=== PATIENT | male | born 1945 | race Caucasian/White ===

== ENCOUNTER 2021-01-09 23:37 | Emergency (ER) | payer MEDICARE, OTHER, SELFPAY ==
--- NOTE | ~2021-01-09 | XR_ITS ---
XR wrist LT min 3V DATE: 01/09/2021 23:55 INDICATION: Fall. Left wrist pain and swelling TECHNIQUE: 4 views COMPARISON: None FINDINGS: There is dorsal soft tissue swelling of the wrist and evidence of dorsally displaced fractu re of the triquetrum bone. Mild chondrocalcinosis of the triangular cartilage. There is mild to moderate osteoarthritis at the first carpometacarpal joint. 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 Sparks was notified in person in the emergency room by Dr. Fierro of the triquetrum fracture on 01/2021 at 0900 hours Reviewed, dictated and finalized at location A. 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 Sparks was notified in person in the emergency ro om by Dr. Fierro of the triquetrum fracture on 01/2021 at 0900 hours
[2021-01-09 23:38] VITALS: BP 148/58; PULSE 72; RESP 16; TEMP 36.9; O2SAT 97
[2021-01-10 01:31] VITALS: BP 113/99; PULSE 70; RESP 14; O2SAT 95
--- NOTE | 2021-01-10 01:58 | ED.GENADULT ---
HPI - General Adult General Chief complaint: Extremity Injury, Upper Stated complaint: L wrist injury Time Seen by Provider: 01/10/21 01:53 History of Present Illness HPI narrative: Patient is a 75-year-old gentleman who presents the emergency department with chief complaint of left wrist pain. The patient reports that he was in the garage getting something he could move the lawnmower and backed up and tripped over the lawnmower and fell on his left wrist. Patient states that his left wrist hurts in the joints and hurts worse with movement and improved with rest. Patient denies any other injuries denies loss of consciousness denies head injury or neck pain Related Data Allergies Allergy/AdvReac Type Severity Reaction Status Date / Time cortisone Allergy Unknown Unknown Verified 01/10/21 01:31 Sulfa (Sulfonamide Allergy Unknown Unknown Verified 01/10/21 01:31 Antibiotics) SULFA Allergy Intermediate Unknown Uncoded 01/10/21 01:31 NKFA Allergy Unknown Unknown Uncoded 01/10/21 01:31 Review of Systems Review of Systems: Narrative: A 10 system review of systems was completed on the patient and is negative except for what is stated in the HPI. Nursing and ancillary documentation was reviewed. [facility] Family History Family History Father Family history of genetic disorder Grandparent Family history of genetic disorder Social History Social History Smoking status: Former smoker Second hand tobacco smoke exposure: No Smoking end date: 07/08/16 Alcohol intake: never Gender identity (if verbalized by the patient): Male Exam Narrative: Exam Narrative: GENERAL: Well-appearing, well-nourished, and in no acute distress. HEAD: Normocephalic, atraumatic. EYES: PERRLA and EOMI. ENT: Nares clear, no rhinorrhea or epistaxis. Mucous membranes moist. NECK: Supple. CHEST: Clear to auscultation. No respiratory distress. HEART: Regular rate and rhythm. No murmur heard. Normal peripheral pulses. ABDOMEN: Soft, nontender, nondistended, normal active bowel sounds. EXTREMITIES: Normal range of motion. No edema. There is tenderness to palpation of the left wrist SKIN: Warm, dry, no rash. NEURO: No focal deficits. Alert and oriented x3. PSYCH: Normal mood and affect. Course Course Emergency Course: Clinical x-ray of the left wrist showed evidence of a carpal bone avulsion fracture Vital Signs Vital signs: Vital Signs Temperature 36.9 C 01/09/21 23:38 Pulse Rate 72 01/09/21 23:38 Respiratory Rate 16 01/09/21 23:38 Blood Pressure 148/58 H 01/09/21 23:38 Pulse Oximetry 97 01/09/21 23:38 Temperature 36.9 C 01/09/21 23:38 Pulse Rate 70 01/10/21 01:31 Respiratory Rate 14 01/10/21 01:31 Blood Pressure 113/99 H 01/10/21 01:31 Pulse Oximetry 95 01/10/21 01:31 Medical Decision Making Vital Signs Vital Signs: Vital Signs Temperature 36.9 C 01/09/21 23:38 Pulse Rate 72 01/09/21 23:38 Respiratory Rate 16 01/09/21 23:38 Blood Pressure 148/58 H 01/09/21 23:38 Pulse Oximetry 97 01/09/21 23:38 Temperature 36.9 C 01/09/21 23:38 Pulse Rate 70 01/10/21 01:31 Respiratory Rate 14 01/10/21 01:31 Blood Pressure 113/99 H 01/10/21 01:31 Pulse Oximetry 95 01/10/21 01:31 Discharge Plan Discharge Clinical Impression: Closed fracture of left wrist Qualifiers: Encounter type: initial encounter Qualified Code(s): S62.102A - Fracture of unspecified carpal bone, left wrist, initial encounter for closed fracture Patient Disposition: Home, Self-Care Condition: Stable Instructions: Antibiotic Form, Wrist Fracture in Adults (ED), Splint Care (ED) Prescriptions: New hydrocodone-acetaminophen 5-325 mg tablet 1 tablet PO Q6H PRN (Reason: pain) 3 Days Qty: 12 RF: 0 Follow-up/Referrals: Gerald Macias MD [Physician] - 1 Week UNKNOW
[2021-01-10] MEDS: HYDROcodone/acetaminophen (*CRX) 5-325 MG TABLET 1 TAB PO (02:28)
[2021-01-10 02:32] VITALS: BP 141/88; PULSE 88; RESP 17; O2SAT 97
== END 2021-01-10 02:33 | disposition home or self-care (01) ==
LOC: ANHED 01-10 02:09
PROVIDERS: Emergency Provider Emergency Medicine
DX: S62.102A Fracture of unspecified carpal bone, left wrist, initial encounter for closed fracture (principal); Z87.891 Personal history of nicotine dependence; W01.0XXA Fall on same level from slipping, tripping and stumbling without subsequent striking against object, initial encounter
CPT/HCPCS: 29125; 73110; 99284; A9270

== ENCOUNTER 2021-09-16 10:29 | Inpatient (IN) | payer MEDICARE, OTHER, SELFPAY ==
[2021-09-16] VITALS (28 sets, daily range): BP systolic 69–130; BP diastolic 46–66; PULSE 82–93; RESP 11–21; TEMP 36.7–37.2; O2SAT 79–100; BMI 32.2
--- NOTE | ~2021-09-16 | US_ITS ---
EXAMINATION: US biopsy lymph node DATE: 09/18/2021 14:56 INDICATION: Pelvic lymphadenopathy. TECHNIQUE: The procedure including the risks, benefits, and alternatives was discussed with the patie nt. Risks discussed included bleeding and infection. The patient understood the risks and agreed to p roceed. The skin overlying the right inguinal region was prepped and draped in usual sterile fashion. Anesthetic was administered with 1% lidocaine subcutaneously. An 18 gauge core biopsy needle was t hen used to obtain 6 core biopsy specimens under continuous sonographic guidance. The entry site was cleaned and dressed. There were no immediate complications. FINDINGS: Ultrasound images demonstrate the needle in a 4.5 x 1.4 cm right inguinal lymph node. IMPRESSION: 1. Ultrasound-guided core needle biopsy of a right inguinal lymph node. Reviewed, dictated and finalized at location A.
--- NOTE | 2021-09-16 10:59 | ECG_ITS ---
Measurements Intervals [place] Rate: 83 P: 232 VT: 150 QRS: 44 QRSD: 88 T: 12 QT: 350 QTc: 413 Interpretive Statements SINUS RHYTHM NONSPECIFIC T-WAVE ABNORMALITY NO PREVIOUS ECG AVAILABLE FOR COMPARISON Electronically Signed On 09-16-2021 13:23:12 [employer] by Jacklyn Cano M.D.
[2021-09-16 11:17] LABS: Basophils Absolute Auto 0.1 K/mm3 (0.0-0.1); Basophils Percent Auto 0.5 % (0.2-1.2); Eosinophils Absolute Auto 0.1 K/mm3 (0-0.3); Eosinophils Percent Auto 0.5 % (0-4.4); Hematocrit 32.3 % (42.0-52.0); Immature Granulocyte Percent A 0.9 % (0-0.5); Lymphocytes Percent Auto 31.5 % (18.3-44.2); Mean Corpuscular Hemoglobin 27.5 pg (26-34); Mean Corpuscular Volume 88.7 fl (80-100); Mean Platelet Volume 10.9 fl (7.4-10.4); Monocytes Absolute Auto 1.1 K/mm3 (0.1-0.6); Monocytes Percent Auto 9.5 % (2.6-8.5); Neutrophils Absolute Auto 6.5 K/mm3 (1.3-6.7); Neutrophils Percent Auto 57.1 % (45.5-73.1); Platelet Count Result 188 k/mm3 (150-375); Red Blood Count 3.64 M/mm3 (4.6-6.20); Red Cell Distribution Width 18.3 % (11.5-14.5); White Blood Count 11.4 K/mm3 (4.5-10.0)
[2021-09-16 11:21] LABS: Add Urine Microscopic? YES; Appearance Urine Clear (Clear); Bilirubin Urine Negative (Negative); Blood Urine Negative (Negative); Color Urine Yellow (Yellow); Glucose Urine UA Negative (Negative); Ketones Urine Trace mg/dL (Negative); Leukocyte Esterase Ur Trace LEU/UL (Negative); Mucus Urine Rare /lpf; Nitrate Urine Negative (Negative); Protein Urine Negative (Negative); RBC Urine 0-2 /hpf (0-2); Specific Grav Ur 1.021 (1.001-1.035); Squamous Epithelial Cell Urine Rare /hpf (Few); Urobilinogen Urine Negative mg/dL (<2.0)
[2021-09-16] MEDS: SODIUM CHLORIDE 0.9% IV 1,000 ML 999 ML IV CONT (11:25)
[2021-09-16] MEDS: PANTOPRAZOLE SODIUM IV 40 MG VIAL 80 MG IV PUSH (11:26)
[2021-09-16 11:27] LABS: Alanine Aminotransferase 22 U/L (4-50); Albumin Level 3.7 g/dL (3.5-5.1); Alkaline Phosphatase 62 U/L (38-126); Anion Gap 7 mmol/L (8-16); Aspartate Amino Transferase 57 U/L (17-59); Bilirubin,Total 0.3 mg/dL (0.2-1.3); Blood Urea Nitrogen 68 mg/dL (9-20); Calcium 8.7 mg/dL (8.4-10.2); Carbon Dioxide 22 mmol/L (22-30); Chloride 109 mmol/L (98-107); Estimated CRCL calculation 88 ml/min; Estimated Glomerular Filt Rate > 60; Glucose 133 mg/dL (65-110); Potassium 5.3 mmol/L (3.4-5.0); Sodium 138 mmol/L (137-145)
[2021-09-16 11:29] LABS: INR 1.2; Partial Thromboplastin Time 28.2 SECONDS (22.3-36.8); Prothrombin Time 14.6 Seconds (11.1-14.7)
--- NOTE | 2021-09-16 12:17 | ED.GIBLEED ---
HPI - GI Bleed General Chief complaint: GI Bleed Stated complaint: near syncopal Time Seen by Provider: 09/16/21 10:31 History of Present Illness HPI Narrative: Patient is a 76-year-old male who presents to the ER with near syncope. Reports he was trying to walk when he got really lightheaded like he might fall. Per tensive for EMS in the 80s. Reports symptoms occurred after having a black pasty bowel movement. He is not on any blood thinners. Denies acid reflux. Reports he has had some intermittent black stools over the last week. No chest pain or chest pressure. No gross blood in stool. Related Data Home Medications Medication Instructions Recorded Confirmed finasteride 5 mg tablet 5 mg PO DAILY 01/18/21 09/05/21 tamsulosin 0.4 mg capsule 0.4 mg PO DAILY 01/18/21 09/05/21 naproxen sodium 220 mg capsule 220 mg PO BID PRN 02/14/21 09/05/21 Allergies Allergy/AdvReac Type Severity Reaction Status Date / Time cortisone Allergy Unknown Unknown Verified 09/05/21 14:57 Sulfa (Sulfonamide Allergy Unknown Unknown Verified 09/05/21 14:57 Antibiotics) SULFA Allergy Intermediate Unknown Uncoded 09/05/21 14:57 NKFA Allergy Unknown Unknown Uncoded 09/05/21 14:57 Review of Systems Review of Systems: All systems reviewed & are unremarkable except as noted in HPI and below Constitutional: Constitutional: Denies chills, Denies fever(s) and Reports weakness ENT: Denies nasal congestion and Denies sore throat Cardiovascular: Cardiovascular: Denies chest pain and Denies rapid heart rate Respiratory: Respiratory: Denies cough, Denies dyspnea and Denies wheezing Gastrointestinal: Gastrointestinal: Denies abdominal pain, Denies heartburn, Denies nausea and Denies vomiting Comments: Dark black stools Neurologic: Reports dizziness and Reports syncope (Near) [facility] Past Medical History Medical History BPH NOS w/o ur obs/LUTS Displaced fracture of carpal bone of left wrist dorsal avulsion fracture of the triquetrum Dyslipidemia Incisional hernia without mention of obstruction or gangrene Nondisplaced fracture of left radial styloid process, initial encounter for closed fracture Peripheral neuropathy Surgical History Surgical History History of appendectomy 2000 History of colostomy reversal 2000 History of laparotomy x2 - 2002 and 2003 due to infected sutures History of partial surgical removal of colon 1999 - due to rupture History of repair of rotator cuff 1995 - Right 2017 - Left History of tonsillectomy 195 Family History Family History Father Family history of genetic disorder Grandparent Family history of genetic disorder Social History Social History Second hand tobacco smoke exposure: No Smoking end date: 12/06/16 Alcohol intake: never Gender identity (if verbalized by the patient): Male Exam Narrative: GENERAL: Well-appearing, well-nourished, and in no acute distress. HEAD: Normocephalic, atraumatic. EYES: PERRL and EOMI. ENT: Mucous membranes moist. CHEST: Clear to auscultation. No respiratory distress. HEART: Regular rate and rhythm. Normal peripheral pulses. ABDOMEN: Soft, nontender, nondistended, black stool on MAZIN without gross blood. Stool is Hemoccult positive. EXTREMITIES: Normal range of motion. No edema. SKIN: Warm, dry, no rash. NEURO: Alert and oriented x3. PSYCH: Normal mood and affect. Course Course Emergency Course: Patient with significant orthostasis. Three-point drop in his hemoglobin. Will start on Protonix drip. GI consulted. Admit to hospitalist service. Vital Signs Vital signs: Vital Signs Pulse Rate 90 09/16/21 10:38 Respiratory Rate 14 09/16/21 10:38 Temperature 98.2 F 09/16/21 10:46 Pulse Rate 85
--- NOTE | 2021-09-16 14:02 | ADMGEN ---
This patient, Wilfrido Raymond, was admitted to Medical Room 340-01. Patient/family oriented to hospital policies and general routines including ID bracelet, bed and alarms, visiting hours, pain management, procedures, bathroom and other care routines, personal items, smoking policy, room service/diet, and visiting hours. Information on how to activate the Rapid Response Team has been discussed. Patient/Family are encouraged to report perceived risks to care and to ask questions if they do not understand what they are told or what they should do.
[2021-09-16] MEDS: SODIUM CHLORIDE 0.9% IV 1,000 ML 125 ML IV CONT ×2 (14:16→21:44)
--- NOTE | 2021-09-16 14:53 | PM.IMHP ---
H&P: HPI History of Present Illness Date/Time: Patient was placed observation status for expected length of stay less than 23 hours for management, will plan to re-evaluate tomorrow for improvement. 09/16/21 14:53 Chief Complaint: Near syncope Narrative: Mr. Raymond is a 76-year-old gentleman who presented emergency room with complaints of near syncope after having a bowel movement this morning. Patient states that he went into the bathroom to have a bowel movement and when he went to stand up he became very lightheaded and dizzy. Patient states he did not lose consciousness. Patient states that he noticed that the stool was very dark and tarry. Patient denies bearing down hard this morning to have his bowel movement. Patient states that he has been having normal bowel movements. Patient states 2 days ago he did have an episode of diarrhea for which he took 2 Imodium and has had no further issues since that time. Patient denies any nausea, vomiting, chest pain, or palpitations. Patient states that when he was walking this morning he did notice that he was short of breath from walking from his bedroom to a chair. Patient states he had to sit down to catch his breath which is abnormal for him. Patient states he does believe 1 month ago he did have a black stool but his told not to worry about it. Upon evaluation the hospital patient was noted to have a hemoglobin of 10.0 and last hemoglobin on record was 13.8. Patient states he does have a history of hypertension, dyslipidemia, BPH, and PTSD. Patient states that he recently did have a CT scan for Urology he was noticed to have abnormal lymph nodes in his groin and he is to have them biopsied at [facility] next week. Patient states he has had significant abdominal surgeries in the past. Patient states at 1 point he had a rupture in his large intestine, but he is unsure why. Patient then had a colostomy with reversal. Review of Systems Review of Systems: A 12 point review of systems was completed patient all pertinent positive and negative per HPI the remainder are unremarkable. [facility] Past Medical History Medical History BPH NOS w/o ur obs/LUTS Displaced fracture of carpal bone of left wrist dorsal avulsion fracture of the triquetrum Dyslipidemia Incisional hernia without mention of obstruction or gangrene Nondisplaced fracture of left radial styloid process, initial encounter for closed fracture Peripheral neuropathy Surgical History Surgical History History of appendectomy 1999 History of colostomy reversal 1999 History of laparotomy x2 - 2002 and 2004 due to infected sutures History of partial surgical removal of colon 1999 - due to rupture History of repair of rotator cuff 1995 - Right 2017 - Left History of tonsillectomy 195 Family History Family History Father Family history of genetic disorder Grandparent Family history of genetic disorder Social History Social History Years smoked: 50 Smoking status: Former smoker Tobacco type: pipe Second hand tobacco smoke exposure: No Smoking end date: 12/06/16 Alcohol intake: former Substance use: never Substance use type: does not use Gender identity (if verbalized by the patient): Male Spiritual care concerns: No Meds Home Medications and Allergies Home Medications Medication Instructions Recorded Confirmed Type finasteride 5 mg tablet 5 mg PO HS 01/18/21 09/16/21 History tamsulosin 0.4 mg capsule 0.4 mg PO HS 01/18/21 09/16/21 History naproxen sodium 220 mg capsule 220 mg PO DAILY 02/14/21 09/16/21 History cholecalciferol (vitamin D3) 1,250 1,250 mcg PO WEEKLY #12 tablet 09/05/21 09/16/21 Rx mcg (50,000 unit) tablet gabapentin 300 mg capsu
[2021-09-16 18:23] LABS: Hematocrit 24.2 % (42.0-52.0); Hemoglobin 7.6 g/dL (14.0-18.0)
[2021-09-16] MEDS: SIMVASTATIN 10 MG TABLET PO (20:08)
[2021-09-16] MEDS: FINASTERIDE 5 MG TABLET PO (20:08)
[2021-09-16] MEDS: TAMSULOSIN HCL 0.4 MG CAPSULE PO (20:08)
[2021-09-16] MEDS: GABAPENTIN 300 MG CAPSULE PO (21:46)
[2021-09-17] VITALS (24 sets, daily range): BP systolic 95–147; BP diastolic 44–72; PULSE 73–85; RESP 16–18; TEMP 36.2–37.6; O2SAT 99–100
[2021-09-17] MEDS: SODIUM CHLORIDE 0.9% IV 250 ML 30 ML IV CONT (03:18)
[2021-09-17 07:57] LABS: Hematocrit 26.4 % (42.0-52.0); Hemoglobin 8.5 g/dL (14.0-18.0)
[2021-09-17] MEDS: ERGOCALCIFEROL 50,000 UNIT CAPSULE 50000 UNITS PO (08:20)
[2021-09-17] MEDS: GABAPENTIN 300 MG CAPSULE PO ×3 (08:20→16:15)
[2021-09-17 08:27] LABS: Anion Gap 4 mmol/L (8-16); Blood Urea Nitrogen 50 mg/dL (9-20); Calcium 8.3 mg/dL (8.4-10.2); Carbon Dioxide 24 mmol/L (22-30); Chloride 111 mmol/L (98-107); Estimated CRCL calculation 78 ml/min; Estimated Glomerular Filt Rate > 60; Glucose 123 mg/dL (65-110); Potassium 4.5 mmol/L (3.4-5.0); Sodium 139 mmol/L (137-145)
[2021-09-17 08:39] LABS: Iron 161 ug/dL (49-181)
[2021-09-17 08:49] LABS: Percent Iron Saturation 57 % (20-50)
[2021-09-17 08:55] LABS: Lactate Dehydrogenase 333 U/L (313-618)
[2021-09-17 09:02] LABS: Transferrin 183 mg/dL (206-381)
--- NOTE | 2021-09-17 09:45 | PM.IMPN ---
Progress Note: A&P Assessment and Plan (1) Acute upper GI bleeding: Code(s): K92.2 - Gastrointestinal hemorrhage, unspecified Status: Acute Assessment and Plan: Reports melena Take naproxen at home H/H has dropped significantly to 7.0/22.0 Continue to trend hemoglobin and hematocrit every 6 hours and monitor closely. GI consult Add protonix BID (2) Anemia: Code(s): D64.9 - Anemia, unspecified Status: Acute Assessment and Plan: Looks to be acute bloodloss anemia H/H low 8.5/26.4 post 1 unit of PRBC 09/17/21 Trend H/H Anemia labs in the am Transfuse/supplement as indicated (3) Retroperitoneal lymphadenopathy: Code(s): R59.0 - Localized enlarged lymph nodes Status: Acute Assessment and Plan: There were probable lymph nodes noted in right groin. biopsy scheduled at the imaging center tomorrow No further workup at this point (4) Orthostasis: Code(s): I95.1 - Orthostatic hypotension Status: Acute Assessment and Plan: Orthostatic BP laying 118/66, sitting 107/54. standing 69/46 Orthostatic BP ordered per shift IV fluids for hydration Treat to the lowest BP (5) Dyslipidemia: Code(s): E78.5 - Hyperlipidemia, unspecified Status: Acute Assessment and Plan: Continue home simvastatin 10mg PO QHS (6) Peripheral neuropathy: Qualifiers: Peripheral neuropathy type: polyneuropathy, unspecified Qualified Code(s): G62.9 - Polyneuropathy, unspecified Code(s): G62.9 - Polyneuropathy, unspecified Status: Acute Assessment and Plan: Continue home gabapentin Time Spent With Patient Time with patient: Greater than 35 minutes Subjective Date/time seen: 09/17/21 0945 Interval history: 09/16/21 14:53 Narrative: Mr. Raymond is a 76-year-old gentleman who presented emergency room with complaints of near syncope after having a bowel movement this morning. Patient states that he went into the bathroom to have a bowel movement and when he went to stand up he became very lightheaded and dizzy. Patient states he did not lose consciousness. Patient states that he noticed that the stool was very dark and tarry. Patient denies bearing down hard this morning to have his bowel movement. Patient states that he has been having normal bowel movements. Patient states 2 days ago he did have an episode of diarrhea for which he took 2 Imodium and has had no further issues since that time. Patient denies any nausea, vomiting, chest pain, or palpitations. Patient states that when he was walking this morning he did notice that he was short of breath from walking from his bedroom to a chair. Patient states he had to sit down to catch his breath which is abnormal for him. Patient states he does believe 1 month ago he did have a black stool but his told not to worry about it. Upon evaluation the hospital patient was noted to have a hemoglobin of 10.0 and last hemoglobin on record was 13.8. Patient states he does have a history of hypertension, dyslipidemia, BPH, and PTSD. Patient states that he recently did have a CT scan for Urology he was noticed to have abnormal lymph nodes in his groin and he is to have them biopsied at [facility] next week. Patient states he has had significant abdominal surgeries in the past. Patient states at 1 point he had a rupture in his large intestine, but he is unsure why. Patient then had a colostomy with reversal. 09/17/21 [id number] Patient stated that he is doing okay today. He is passing gas and say that he had a bowel movement which she stated looked brown yesterday at 5:00 p.m.. Patient did say that he was weak any did not get any sleep last night due to blood transfusion and loss of IVs. He denies any chest pain, shortness of breath, nausea, vomiting, diarrhea, constipation, headaches. He was concerned about
[2021-09-17 10:02] LABS: Folic Acid 18.3 ng/mL (2.76->20)
--- NOTE | 2021-09-17 10:55 | WPDGICN ---
Assessment and Plan Assessment and plan (1) Melena: Code(s): K92.1 - Melena Status: Acute Assessment and Plan: probably due to nsaid's use, he is not taking any ppi will proceed with egd continue with iv protonix, trend hb- he is getting one unit blood transfusion will need to discontinue use of nsaid's- he is aware npo after midnight (2) Acute blood loss anemia: Code(s): D62 - Acute posthemorrhagic anemia Status: Acute Assessment and Plan: keep hb above 7 continue to trend h/h (3) Pre-syncope: Code(s): R55 - Syncope and collapse Status: Acute Assessment and Plan: from acute gib on medical treatment (4) Retroperitoneal lymphadenopathy: Code(s): R59.0 - Localized enlarged lymph nodes Status: Acute Assessment and Plan: he will get biopsy this coming week, patient says that was ordered by his urologist (5) Acute upper GI bleeding: Code(s): K92.2 - Gastrointestinal hemorrhage, unspecified Status: Acute (6) NSAID long-term use: Code(s): Z79.1 - manager oncology (current) use of non-steroidal anti-inflammatories (NSAID) Status: Acute Assessment and Plan: discontinue (7) Post herpetic neuralgia: Code(s): B02.29 - Other postherpetic nervous system involvement Status: Acute GI Consult Note Consult date/time: 09/17/21 10:55 Reason for consult: melena HPI: Wilfrido Raymond is a 76 year old male with history of HTN, dyslipidemia, BPH, PTSD, remote partial colectomy after colon rupture in , he is uptodate with colonoscopies at [facility]. He says that last 6 months has been using 2 aleve daily because post zoster neuralgia. He went to the bathroom to have a bowel movement and when he tried to stand up he became very lightheaded and dizzy and almost passed out, then noted dark tarry stools x3, some nausea but no vomiting. No abdominal pain, no GERD symptoms and he is not taking any ppi. ER evaluation found that he was anemic with hb 10 then drown to 7 and now is getting blood transfusion (baseline hb 13.8), BUN 68 with normal creatinine. Feeling better after fluids and blood transfusion. He is hungry. He also was found to have enlarged retroperitoneal lymph nodes and tomorrow he is supposed to get biopsy (ordered by his urologist). Review of Systems Constitutional: Constitutional: Reports weakness Eyes: Eyes: Denies blurry vision ENT: Reports Normal hearing present Cardiovascular: Cardiovascular: Denies chest pain Respiratory: Respiratory: Denies cough Gastrointestinal: Gastrointestinal: Reports melena Genitourinary: Genitourinary: Denies urinary urgency Musculoskeletal: Musculoskeletal: Denies neck pain Integumentary/Breasts: Skin/Breast: Denies dry skin Neurologic: Denies confusion Psychiatric: Psychiatric: Denies anxiety [facility] Past Medical History Medical History (Updated 09/17/21 @ 11:09 by Antonio Morales MD) Acute blood loss anemia BPH NOS w/o ur obs/LUTS Displaced fracture of carpal bone of left wrist dorsal avulsion fracture of the triquetrum Dyslipidemia Incisional hernia without mention of obstruction or gangrene Melena Nondisplaced fracture of left radial styloid process, initial encounter for closed fracture NSAID long-term use Peripheral neuropathy Pre-syncope Surgical History Surgical History History of appendectomy 1999 History of colostomy reversal 1999 History of laparotomy x2 - 2002 and 2003 due to infected sutures History of partial surgical removal of colon 1999 - due to rupture History of repair of rotator cuff 1996 - Right 2017 - Left History of tonsillectomy 195 Family History Family History Father Family history of genetic disorder Grandparent Family history of genetic disorder Social History Social History (Reviewed
[2021-09-17] MEDS: PANTOPRAZOLE SODIUM IV 40 MG VIAL IV PUSH ×2 (11:59→20:25)
[2021-09-17 13:15] LABS: Hematocrit 27.7 % (42.0-52.0); Hemoglobin 9.1 g/dL (14.0-18.0)
[2021-09-17] MEDS: SODIUM CHLORIDE 0.9% IV 1,000 ML 75 ML IV CONT (16:15)
[2021-09-17] MEDS: SIMVASTATIN 10 MG TABLET PO (20:26)
[2021-09-17] MEDS: FINASTERIDE 5 MG TABLET PO (20:26)
[2021-09-17] MEDS: TAMSULOSIN HCL 0.4 MG CAPSULE PO (20:26)
[2021-09-17 21:30] LABS: Hematocrit 25.6 % (42.0-52.0); Hemoglobin 8.5 g/dL (14.0-18.0)
[2021-09-18] VITALS (17 sets, daily range): BP systolic 93–126; BP diastolic 46–69; PULSE 70–78; RESP 16–20; TEMP 36.1–36.9; O2SAT 97–100
[2021-09-18] MEDS: SODIUM CHLORIDE 0.9% IV 1,000 ML 75 ML IV CONT (05:45)
[2021-09-18 06:07] LABS: Hemoglobin 8.7 g/dL (14.0-18.0)
--- NOTE | 2021-09-18 07:32 | PM.IMPN ---
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 non-steroidal anti-inflammatories (NSAID) Status: Acute (3) Melena: Code(s): K92.1 - Melena Status: Acute (4) Acute blood loss anemia: Code(s): D62 - Acute posthemorrhagic anemia Status: Acute (5) Anemia: Code(s): D64.9 - Anemia, unspecified Status: Acute (6) Orthostasis: Code(s): I95.1 - Orthostatic hypotension Status: Acute (7) Acute upper GI bleeding: Code(s): K92.2 - Gastrointestinal hemorrhage, unspecified Status: Acute (8) Retroperitoneal lymphadenopathy: Code(s): R59.0 - Localized enlarged lymph nodes Status: Acute (9) Dyslipidemia: Code(s): E78.5 - Hyperlipidemia, unspecified Status: Acute (10) Peripheral neuropathy: Qualifiers: Peripheral neuropathy type: polyneuropathy, unspecified Qualified Code(s): G62.9 - Polyneuropathy, unspecified Code(s): G62.9 - Polyneuropathy, unspecified Status: Acute Additional Plan Interval history: 09/16/21 14:53 Narrative: Mr. Raymond is a 76-year-old gentleman who presented emergency room with complaints of near syncope after having a bowel movement this morning. Patient states that he went into the bathroom to have a bowel movement and when he went to stand up he became very lightheaded and dizzy. Patient states he did not lose consciousness. Patient states that he noticed that the stool was very dark and tarry. Patient denies bearing down hard this morning to have his bowel movement. Patient states that he has been having normal bowel movements. Patient states 2 days ago he did have an episode of diarrhea for which he took 2 Imodium and has had no further issues since that time. Patient denies any nausea, vomiting, chest pain, or palpitations. Patient states that when he was walking this morning he did notice that he was short of breath from walking from his bedroom to a chair. Patient states he had to sit down to catch his breath which is abnormal for him. Patient states he does believe 1 month ago he did have a black stool but his told not to worry about it. Upon evaluation the hospital patient was noted to have a hemoglobin of 10.0 and last hemoglobin on record was 13.8. Patient states he does have a history of hypertension, dyslipidemia, BPH, and PTSD. Patient states that he recently did have a CT scan for Urology he was noticed to have abnormal lymph nodes in his groin and he is to have them biopsied at [facility] next week. Patient states he has had significant abdominal surgeries in the past. Patient states at 1 point he had a rupture in his large intestine, but he is unsure why. Patient then had a colostomy with reversal. 09/17/21 1416 Patient stated that he is doing okay today. He is passing gas and say that he had a bowel movement which she stated looked brown yesterday at 5:00 p.m.. Patient did say that he was weak any did not get any sleep last night due to blood transfusion and loss of IVs. He denies any chest pain, shortness of breath, nausea, vomiting, diarrhea, constipation, headaches. He was concerned about being NPO however Dr. Sierra had came in and had advanced his diet for today. Patient is get an EGD in the a.m.. Patient is also supposed to be getting a biopsy done that is scheduled for tomorrow however with him being in the hospital he is concerned he is not going to get it done he stated that Dr. Mark advised him to get it sooner than later due to the way it looked. Patient also stated that he is urinating about every 30 minutes and states that he does not feel he is fully emptying. 09/18/21 EGD today R inguinal lymph node bx today cont current care monitor H/H on LR 150cc/hr for procedure per anesthesiology will
[2021-09-18] MEDS: GABAPENTIN 300 MG CAPSULE PO ×3 (09:20→17:14)
[2021-09-18] MEDS: PANTOPRAZOLE SODIUM IV 40 MG VIAL IV PUSH (09:20)
[2021-09-18] MEDS: LACTATED RINGERS 1,000 ML 150 ML IV CONT (13:18)
--- NOTE | 2021-09-18 13:37 | WPDANESEPPF ---
Anes - Initial Pre Proc Eval Procedure: Operation Date: 09/18/21 14:45 Proposed Procedures p Esophagogastroduodenoscopy - Antonio Morales MD Date/Time: 09/18/21 13:37 Surgeon: ISABELL Adkins Pre Op Diagnosis: Upper GI Bleed Patient Data Age: 76 Gender: M Height: 1.8 m Weight: 104.9 kg Last Vital Signs Temp 36.1 C L 09/18/21 13:14 Pulse 74 09/18/21 13:14 Resp 18 09/18/21 13:14 BP 126/54 L 09/18/21 13:14 Pulse Ox 99 09/18/21 13:14 Allergies Allergy/AdvReac Type Severity Reaction Status Date / Time cortisone Allergy Unknown Unknown Verified 09/18/21 13:13 Sulfa (Sulfonamide Allergy Unknown Unknown Verified 09/18/21 13:13 Antibiotics) Home Medications Medication Instructions Recorded Confirmed Type finasteride 5 mg tablet 5 mg PO HS 01/18/21 09/16/21 History tamsulosin 0.4 mg capsule 0.4 mg PO HS 01/18/21 09/16/21 History naproxen sodium 220 mg capsule 220 mg PO DAILY 02/14/21 09/16/21 History cholecalciferol (vitamin D3) 1,250 1,250 mcg PO WEEKLY #12 tablet 09/05/21 09/16/21 Rx mcg (50,000 unit) tablet gabapentin 300 mg capsule 300 mg PO TID #270 cap 09/05/21 09/16/21 Rx simvastatin 10 mg tablet 10 mg PO QHS #90 tablet 09/05/21 09/16/21 Rx Laboratory Tests 09/17/21 09/18/21 21:25 05:15 Hgb 8.5 g/dL L g/dL 8.7 g/dL L g/dL (14.0-18.0) (14.0-18.0) Hct 25.6 % L % 27.0 % L % (42.0-52.0) (42.0-52.0) Patient hx anesthesia problems: none Family hx anesthesia problems: none Results Review: All pre-operative results and documents have been reviewed as part of the pre-operative evaluation. [facility] Past Medical History Medical History Acute blood loss anemia BPH NOS w/o ur obs/LUTS Displaced fracture of carpal bone of left wrist dorsal avulsion fracture of the triquetrum Dyslipidemia Incisional hernia without mention of obstruction or gangrene Melena Nondisplaced fracture of left radial styloid process, initial encounter for closed fracture NSAID long-term use Peripheral neuropathy Pre-syncope Surgical History Surgical History History of appendectomy 1999 History of colostomy reversal 1999 History of laparotomy x2 - 2002 and 2003 due to infected sutures History of partial surgical removal of colon 1999 - due to rupture History of repair of rotator cuff 1995 - Right 2017 - Left History of tonsillectomy 1951 Family History Family History Father Family history of genetic disorder Grandparent Family history of genetic disorder Social History Social History Years smoked: 50 Smoking status: Former smoker Tobacco type: pipe Second hand tobacco smoke exposure: No Smoking end date: 12/06/16 Alcohol intake: former Substance use: never Substance use type: does not use Gender identity (if verbalized by the patient): Male Spiritual care concerns: No Anes - Eval Final PreProcedure Day of Procedure 09/18/21 13:37 Patient weight: normal Heart: regular rate and rhythm Lungs: clear to auscultation Airway: Mallampati scale class II Neurological: alert and oriented Last oral intake: >/= 8 hours ASA classification: III Emergent: no Anesthetic plan: proceed Anesthesia type and monitoring: general GIVS and standard monitoring Results Review: All pre-operative results and documents have been reviewed as part of the pre-operative evaluation. Informed Consent: The patient's anesthetic plan and its attendant risks and benefits were discussed with the patient/family/POA. Questions were solicited and answers provided to the satisfaction of the patient/family/POA.
[2021-09-18] MEDS: FINASTERIDE 5 MG TABLET PO (20:28)
[2021-09-18] MEDS: SIMVASTATIN 10 MG TABLET PO (20:28)
[2021-09-18] MEDS: TAMSULOSIN HCL 0.4 MG CAPSULE PO (20:29)
[2021-09-18] MEDS: PANTOPRAZOLE 40 MG TABLET PO (20:29)
[2021-09-19] VITALS (8 sets, daily range): BP systolic 100–131; BP diastolic 50–60; PULSE 70–80; RESP 18; TEMP 36.1–36.7; O2SAT 97–99
[2021-09-19] MEDS: GABAPENTIN 300 MG CAPSULE PO (08:07)
[2021-09-19] MEDS: PANTOPRAZOLE 40 MG TABLET PO (08:07)
[2021-09-19 09:10] LABS: Hematocrit 28.2 % (42.0-52.0); Mean Corpuscular HGB Conc 31.9 g/dl (32-36); Mean Corpuscular Hemoglobin 28.6 pg (26-34); Mean Corpuscular Volume 89.5 fl (80-100); Mean Platelet Volume 10.8 fl (7.4-10.4); Platelet Count Result 147 k/mm3 (150-375); Red Blood Count 3.15 M/mm3 (4.6-6.20); Red Cell Distribution Width 17.8 % (11.5-14.5); White Blood Count 10.3 K/mm3 (4.5-10.0)
[2021-09-19 09:28] LABS: Anion Gap 4 mmol/L (8-16); Blood Urea Nitrogen 19 mg/dL (9-20); Calcium 8.1 mg/dL (8.4-10.2); Carbon Dioxide 28 mmol/L (22-30); Chloride 105 mmol/L (98-107); Estimated CRCL calculation 87 ml/min; Estimated Glomerular Filt Rate > 60; Glucose 127 mg/dL (65-110); Sodium 137 mmol/L (137-145)
--- NOTE | 2021-09-19 11:00 | WPDGIPROGNO ---
Progress Note: A&P Assessment and Plan (1) Gastric ulcer due to nonsteroidal anti-inflammatory drug (NSAID): Code(s): K25.9 - Gastric ulcer, unspecified as acute or chronic, without hemorrhage or perforation; T39.395A - Adverse effect of other nonsteroidal anti-inflammatory drugs [NSAID], initial encounter Status: Acute Assessment and Plan: he is going home today with ppi twice daily, also advised not to use nsaid's- instead can use tylenol as needed but will check with his pcp also noted small [place] of salmon colored mucosa- if + Menendez's then will need egd in 1 year for surveillance (2) Melena: Code(s): K92.1 - Melena Status: Acute Assessment and Plan: resolved (3) Acute blood loss anemia: Code(s): D62 - Acute posthemorrhagic anemia Status: Acute Assessment and Plan: hb stable now (4) Pre-syncope: Code(s): R55 - Syncope and collapse Status: Acute Subjective Date/time seen: 09/19/21 13:20 Interval history: he is doing well, no more bleeding, tolerated diet. EGD yesterday with erosive gastritis and non-bleeding gastric ulcer Review of Systems Review of Systems: All systems reviewed & are unremarkable except as noted in HPI and below Exam Const: General: comfortable and no acute distress HENMT: General nose exam: Normal nares present Eyes: General: appearance normal, both eyes and all related structures Neck: Neck: no JVD Resp: Auscultation: clear to auscultation bilaterally Cardio: Rate: regular rate Rhythm: regular rhythm GI: Inspection: non-distended GI Palp: Yes Soft to palpation and No Guarding due to palpation present (GI) Auscultation: normal bowel sounds Skin: General skin exam: normal color Neuro: Speech: normal speech Motor exam (neuro): tone not normal throughout Extrem: General: normal to inspection Psych: Mental Status: mental status grossly normal Objective Data Vital Signs Vital Signs: Vital Signs - 24 hr 09/18/21 14:19 09/18/21 14:29 09/18/21 14:39 Temperature Pulse Rate 70 74 72 Respiratory Rate 16 18 20 Blood Pressure 107/49 L 108/54 L 115/62 Pulse Oximetry 97 98 99 09/18/21 16:16 09/18/21 17:24 09/18/21 20:00 Temperature Pulse Rate 73 75 Respiratory Rate 20 Blood Pressure 125/69 Pulse Oximetry 99 100 09/18/21 22:23 09/18/21 22:25 09/19/21 00:00 Temperature 97.8 F 97.7 F Pulse Rate 77 73 73 Respiratory Rate 18 18 Blood Pressure 120/60 105/55 L Pulse Oximetry 97 98 09/19/21 02:22 09/19/21 04:00 09/19/21 06:55 Temperature 98.0 F 98.0 F Pulse Rate 77 80 77 Respiratory Rate 18 18 Blood Pressure 121/53 L 110/60 Pulse Oximetry 99 97 09/19/21 08:00 09/19/21 08:52 09/19/21 10:40 Temperature 96.9 F L Pulse Rate 76 70 Respiratory Rate 18 Blood Pressure 100/50 L 116/58 L Pulse Oximetry 99 09/19/21 12:00 Temperature Pulse Rate 75 Respiratory Rate Blood Pressure Pulse Oximetry Intake/Output Intake/Output: Intake & Output 09/16/21 09/17/21 09/18/21 09/19/21 22:59 23:59 23:59 23:59 Intake Total 2040 640 Output Total 1270 500 Balance 770 140 Meds/Results Radiology Results: ITS Impressions Lymph Node Biopsy Ultrasound 09/18/21 14:58 IMPRESSION: 1. Ultrasound-guided core needle biopsy of a right inguinal lymph node. Labs Labs: Laboratory Results - last 24 hr 09/19/21 09/19/21 08:53 08:53 WBC 10.3 H RBC 3.15 L Hgb 9.0 L Hct 28.2 L MCV 89.5 MCH 28.6 MCHC 31.9 L RDW 17.8 H Plt Count 147 L MPV 10.8 H Sodium 137 Potassium 4.0 Chloride 105 Carbon Dioxide 28 Anion Gap 4 L BUN 19 D Creatinine 0.80 Estim Creat Clear Calc 87 Estimated GFR > 60 Glucose 127 H Calcium 8.1 L Amg Follow-up Billing Inpatient Follow-up [id number] [facility]
--- NOTE | 2021-09-19 11:24 | WPDANESPN ---
Anes - Prog Note Post-Op Date/Time: 09/19/21 11:24 Cardiovascular status: normal Respiratory status: normal Airway patency: baseline Mental status: baseline Post-Op hydration status: normal Vital Signs: Last Vital Signs Temp 96.9 F L 09/19/21 10:40 Pulse 70 09/19/21 10:40 Resp 18 09/19/21 10:40 BP 116/58 L 09/19/21 10:40 Pulse Ox 99 09/19/21 10:40 Pain Score (VAS): 0 I/O: Intake & Output 09/18/21 09/19/21 09/19/21 23:59 07:59 15:59 Intake Total 440 400 240 Output Total 300 500 Balance 140 -100 240 Laboratory Tests 09/19/21 08:53 09/19/21 08:53 09/19/21 09/19/21 08:53 08:53 WBC 10.3 H RBC 3.15 L Hgb 9.0 L Hct 28.2 L MCV 89.5 MCH 28.6 MCHC 31.9 L RDW 17.8 H Plt Count 147 L MPV 10.8 H Sodium 137 Potassium 4.0 Chloride 105 Carbon Dioxide 28 Anion Gap 4 L BUN 19 D Creatinine 0.80 Estim Creat Clear Calc 87 Estimated GFR > 60 Glucose 127 H Calcium 8.1 L Patient Feedback: Patient satisfied with anesthetic care.
--- NOTE | 2021-09-19 12:40 | P.DS_ITS ---
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 standing 69/46 * Orthostatic BP ordered per shift * IV fluids for hydration * Treat to the lowest BP (7) Acute upper GI bleeding: Code(s): K92.2 - Gastrointestinal hemorrhage, unspecified Status: Acute Assessment and Plan: * Reports melena * Take naproxen at home * H/H has dropped significantly to 7.0/22.0 * Continue to trend hemoglobin and hematocrit every 6 hours and monitor closely. * GI consult * Add protonix BID (8) Retroperitoneal lymphadenopathy: Code(s): R59.0 - Localized enlarged lymph nodes Status: Acute Assessment and Plan: * There were probable lymph nodes noted in right groin. * biopsy scheduled at the imaging center tomorrow * No further workup at this point (9) Dyslipidemia: Code(s): E78.5 - Hyperlipidemia, unspecified Status: Acute Assessment and Plan: * Continue home simvastatin 10mg PO QHS (10) Peripheral neuropathy: Qualifiers: Peripheral neuropathy type: polyneuropathy, unspecified Qualified Code(s): G62.9 - Polyneuropathy, unspecified Code(s): G62.9 - Polyneuropathy, unspecified Status: Acute Assessment and Plan: * Continue home gabapentin DS: Summary Hospital Course Reason for hospitalization: Patient was placed observation status for expected length of stay less than 23 hours for management, will plan to re-evaluate tomorrow for improvement. 09/16/21 14:53 Chief Complaint: Near syncope Narrative: Mr. Raymond is a 76-year-old gentleman who presented emergency room with complaints of near syncope after having a bowel movement this morning. Patient states that he went into the bathroom to have a bowel movement and when he went to stand up he became very lightheaded and dizzy. Patient states he did not lose consciousness. Patient states that he noticed that the stool was very dark and tarry. Patient denies bearing down hard this morning to have his bowel movement. Patient states that he has been having normal bowel movements. Patient states 2 days ago he did have an episode of diarrhea for which he took 2 Imodium and has had no further issues since that time. Patient denies any nausea, vomiting, chest pain, or palpitations. Patient states that when he was walking this morning he did notice that he was short of breath from walking from his bedroom to a chair. Patient states he had to sit down to catch his breath which is abnormal for him. Aneesh
--- NOTE | 2021-09-19 12:40 | PM.DS ---
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 standing 69/46 Orthostatic BP ordered per shift IV fluids for hydration Treat to the lowest BP (7) Acute upper GI bleeding: Code(s): K92.2 - Gastrointestinal hemorrhage, unspecified Status: Acute Assessment and Plan: Reports melena Take naproxen at home H/H has dropped significantly to 7.0/22.0 Continue to trend hemoglobin and hematocrit every 6 hours and monitor closely. GI consult Add protonix BID (8) Retroperitoneal lymphadenopathy: Code(s): R59.0 - Localized enlarged lymph nodes Status: Acute Assessment and Plan: There were probable lymph nodes noted in right groin. biopsy scheduled at the imaging center tomorrow No further workup at this point (9) Dyslipidemia: Code(s): E78.5 - Hyperlipidemia, unspecified Status: Acute Assessment and Plan: Continue home simvastatin 10mg PO QHS (10) Peripheral neuropathy: Qualifiers: Peripheral neuropathy type: polyneuropathy, unspecified Qualified Code(s): G62.9 - Polyneuropathy, unspecified Code(s): G62.9 - Polyneuropathy, unspecified Status: Acute Assessment and Plan: Continue home gabapentin DS: Summary Hospital Course Reason for hospitalization: Patient was placed observation status for expected length of stay less than 23 hours for management, will plan to re-evaluate tomorrow for improvement. 09/16/21 14:53 Chief Complaint: Near syncope Narrative: Mr. Raymond is a 76-year-old gentleman who presented emergency room with complaints of near syncope after having a bowel movement this morning. Patient states that he went into the bathroom to have a bowel movement and when he went to stand up he became very lightheaded and dizzy. Patient states he did not lose consciousness. Patient states that he noticed that the stool was very dark and tarry. Patient denies bearing down hard this morning to have his bowel movement. Patient states that he has been having normal bowel movements. Patient states 2 days ago he did have an episode of diarrhea for which he took 2 Imodium and has had no further issues since that time. Patient denies any nausea, vomiting, chest pain, or palpitations. Patient states that when he was walking this morning he did notice that he was short of breath from walking from his bedroom to a chair. Patient states he had to sit down to catch his breath which is abnormal for him. Patient states he does believe 1 month ago he did have a black stool but his told not to worry about it. Upon evaluation the hospital patient was noted to have a hemoglobin of 10.0 and last hemoglobin on record was 13.8. Patient states he does have a history of hypertension, dyslipidemia, BPH, and PTSD. Patient states that he recently did have a CT scan for Urology he was noticed to have abnormal lymph nodes in his groin and he is to have them biopsied at [facility] next week. Patient stat
== END 2021-09-19 13:00 | disposition home or self-care (01) | DRG 378 ==
LOC: ANHED 11:08 → ANH3MED 12:42
PROVIDERS: Internal Medicine Gastroenterology; Nurse Practitioner; Nurse Practitioner Adult Health; Admitting Provider Internal Medicine; Emergency Provider Emergency Medicine; PCP Family Medicine; Visit Provider Family Medicine
PROC: 0DJ08ZZ Inspection of Upper Intestinal Tract, Via Natural or Artificial Opening Endoscopic (ICD-10-PCS; CPT 43235; principal; 2021-09-18 14:45)
DX: K25.4 Chronic or unspecified gastric ulcer with hemorrhage (principal); D62 Acute posthemorrhagic anemia; B02.29 Other postherpetic nervous system involvement; C85.15 Unspecified B-cell lymphoma, lymph nodes of inguinal region and lower limb; I95.1 Orthostatic hypotension; Z87.891 Personal history of nicotine dependence; Z79.899 Other long term (current) drug therapy; N40.0 Benign prostatic hyperplasia without lower urinary tract symptoms; E78.5 Hyperlipidemia, unspecified; F43.10 Post-traumatic stress disorder, unspecified; Z79.1 Long term (current) use of non-steroidal anti-inflammatories (NSAID); K25.9 Gastric ulcer, unspecified as acute or chronic, without hemorrhage or perforation; T39.395A Adverse effect of other nonsteroidal anti-inflammatory drugs [NSAID], initial encounter; K29.70 Gastritis, unspecified, without bleeding; G62.9 Polyneuropathy, unspecified
CPT/HCPCS: 36415; 36430; 38505; 76942; 80048; 80053; 81001; 82607; 82728; 82746; 83540; 83550; 83615; 84443; 84466; 85014; 85018; 85025; 85027; 85610; 85730; 86850; 86900; 86901; 86920; 87081; 87086; 87088; 88108; 88184; 88185; 88305; 88313; 88341; 88342; 93005; 96361; 96365; 96366; 99285; A9270; C9113; G0378; J2704; J7030; J7050; J7060; J7120; P9016

== ENCOUNTER 2021-10-03 08:53 | Outpatient (CLI) | payer MEDICARE, SELFPAY ==
--- NOTE | ~2021-10-03 | PE_ITS ---
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 TECHNIQUE: Blood glucose level was 113 mg/dL. 10.813 mCi of 18-fluorodeoxyglucose (18-FDG) was admini stered i.v. Low dose computed tomography (CT) images were acquired from the base of the brain to the proximal thighs for attenuation correction and anatomic localization. Positron emission tomography (P ET) images were acquired in the same distribution beginning 75 minutes after injection. Images includ ing fused PET/CT images were reconstructed in axial, coronal, and sagittal planes. Automated exposure control technique was employed. The dose-length product was 1206.23mGy-cm. COMPARISON: CT abdomen and pelvis performed at outside institution on 08/30/2021 FINDINGS: Head/neck: There is symmetric increased activity in the oral cavity, at the nares, parotid glands, submandibula r glands, laryngeal muscles and ocular muscles without CT correlate, likely physiologic. There are nu merous cervical lymph nodes along the jugular chains and posterior cervical triangles are more notabl e for number than size although several are mildly enlarged measuring up to 1.3 cm in maximal short a xis diameter at the right internal jugular chain and left posterior triangle, the former lymph node a lso demonstrated is degree of FDG uptake with maximal SUV of 2.5. Chest: Increase in size of a small posterior layering left pleural effusion with dependent compressive atele ctasis in the left lower lobe. Additional mild dependent atelectasis in the right lower lobe. There i s paraspinal soft tissue density throughout the thoracic spine on both the left and right which measu res up to 1 cm in thickness which is without increased FDG uptake. Heart size is normal. Atherosclero tic coronary artery calcification. No pericardial effusion. Thoracic aorta is normal in caliber. Ther e are numerous enlarged thoracic lymph nodes many demonstrating mildly increased uptake. The largest seen in the bilateral axillary regions, the largest measuring 4.0 x 2.6 cm with maximal SUV of 2.8 th e right axilla and 3.5 x 2.3 cm with maximal SUV of 2.8 at the left axilla. Smaller but still more nu merous and larger than typical lymph nodes are seen in the mediastinum and bilateral subpectoral and supraclavicular regions with similar mildly increased FDG uptake. There is a subcentimeter skin nodul e nearly indiscernible on CT imaging located approximately 5 cm medially from the right acromioclavic ular joint with maximal SUV of 2.7. Abdomen/pelvis/proximal thighs: Physiologic renal accumulation and excretion of FDG activity in the kidneys, bladder and along portio ns of ureters. Normal degree and heterogenous pattern of increased uptake throughout the liver withou t radiologic correlate or dominant FDG avid lesion. Small calcified gallstone at the neck of the norm al gallbladder. The spleen and bilateral adrenal glands are normal. Again seen is a large conglomerat ion of periportal and portacaval lymph nodes which from the main portal vein and abut the otherwise n ormal spleen. The conglomeration inclusive of the central main portal vein measures approximately 9.1 x 6.6 cm maximal transaxial dimensions with maximal SUV of 4.0. Multiple additional enlarged retrope ritoneal lymph nodes extending inferiorly along the aorta and inferior vena cava and pelvis along the left and right iliac chains to the bilateral inguinal regions. These also demonstrate relatively mil d increased FDG uptake. For reference a 4.7 x 3.2 cm left external iliac chain lymph node is a janki l SUV of 3.0. Mild uptake scattered throughout the bowels without radiologic correlate, also likely p hysiologic. Musculoskeletal: There is diffuse increased marrow uptake throughout the the axial and appendicular skeleton. No suspi cious lytic or blastic bone lesions. Instantly not
[2021-10-03 09:24] LABS: Glucose Point of Care 113 mg/dl (65-105)
== END 2021-10-03 08:54 | disposition home or self-care (01) ==
LOC: ANHIMG 08:56
PROVIDERS: PCP Family Medicine; Visit Provider Internal Medicine Hematology & Oncology
DX: C85.15 Unspecified B-cell lymphoma, lymph nodes of inguinal region and lower limb (principal); R59.0 Localized enlarged lymph nodes; J90 Pleural effusion, not elsewhere classified; K80.20 Calculus of gallbladder without cholecystitis without obstruction
CPT/HCPCS: 78815; A9552

== ENCOUNTER 2021-10-04 01:17 | Day surgery (SDC) | payer MEDICARE, SELFPAY ==
[2021-10-03 16:19] VITALS: BMI 32.8
--- NOTE | ~2021-10-04 | BM_ITS ---
EXAMINATION: CCL bone marrow asp w bx diag ORDER COMPLETED DATE: 10/04/2021 10:27 INDICATION: B-cell lymphoma TECHNIQUE: A time-out was performed to verify the patient's name, date of , and procedure to b e performed. The procedure including the risks, benefits, and alternatives was discussed with the pat ient. Risks discussed included bleeding and infection. The patient understood the risks and agreed to proceed. The skin overlying the right posterior iliac spine was prepped and draped in usual sterile fashion. Anesthetic was administered with 1% lidocaine subcutaneously. Systemic analgesia was provide d with 200 mcg fentanyl IV. An 11 gauge needle was inserted into the ilium with fluoroscopic guidance . Attempt was made at bone aspiration which yielded a dry tap. An 8 gauge needle was then inserted in to the ilium with fluoroscopic guidance. A core bone marrow biopsy was obtained. There were no immedi ate complications. Fluoroscopy exposure time was 0.6 minutes. The total number of images was 94. FINDINGS: Real-time fluoroscopy demonstrates a marker overlying the right posterior iliac spine. IMPRESSION: 1. Unsuccessful fluoro-guided bone marrow aspiration. Glass slide smears were made from the subsequen t bone marrow core biopsy. 2. Successful fluoro-guided bone marrow core biopsy. Reviewed, dictated and finalized at location A. IMPRESSION: 1. Unsuccessful fluoro-guided bone marrow aspiration. Glass slide smears were m soraida from the subsequent bone marrow core biopsy. 2. Successful fluoro-guided bone marrow core biopsy.
[2021-10-04 07:25] VITALS: BP 130/69; PULSE 70; RESP 18; TEMP 36.3; O2SAT 100
[2021-10-04 07:35] LABS: Basophils Absolute Auto 0.1 K/mm3 (0.0-0.1); Basophils Percent Auto 0.6 % (0.2-1.2); Eosinophils Absolute Auto 0.2 K/mm3 (0-0.3); Eosinophils Percent Auto 2.2 % (0-4.4); Hematocrit 35.7 % (42.0-52.0); Hemoglobin 10.8 g/dL (14.0-18.0); Immature Granulocyte Absolute 0.05 K/mm3 (0.00-0.031); Immature Granulocyte Percent A 0.5 % (0-0.5); Lymphocytes Absolute Auto 3.55 K/mm3 (0.9-3.2); Lymphocytes Percent Auto 36.9 % (18.3-44.2); Mean Corpuscular HGB Conc 30.3 g/dl (32-36); Mean Corpuscular Hemoglobin 28.2 pg (26-34); Mean Corpuscular Volume 93.2 fl (80-100); Mean Platelet Volume 10.4 fl (7.4-10.4); Monocytes Absolute Auto 1.4 K/mm3 (0.1-0.6); Monocytes Percent Auto 14.9 % (2.6-8.5); Neutrophils Absolute Auto 4.3 K/mm3 (1.3-6.7); Neutrophils Percent Auto 44.9 % (45.5-73.1); Platelet Count Result 206 k/mm3 (150-375); Red Blood Count 3.83 M/mm3 (4.6-6.20); Red Cell Distribution Width 18.2 % (11.5-14.5); White Blood Count 9.6 K/mm3 (4.5-10.0)
[2021-10-04 08:01] VITALS: BMI 32.8
--- NOTE | 2021-10-04 08:05 | P.SEDATION_ITS ---
Moderate Sedation Note-Pt Data Patient Data Allergies Allergy/AdvReac Type Severity Reaction Status Date / Time cortisone Allergy Unknown Unknown Verified 10/04/21 07:52 Sulfa (Sulfonamide Allergy Unknown Unknown Verified 10/04/21 07:52 Antibiotics) Home Medications Medication Instructions Recorded Confirmed Type finasteride 5 mg tablet 5 mg PO HS 01/18/21 10/03/21 History tamsulosin 0.4 mg capsule 0.4 mg PO HS 01/18/21 10/03/21 History cholecalciferol (vitamin D3) 1,250 1,250 mcg PO WEEKLY #12 tablet 09/05/21 10/03/21 Rx mcg (50,000 unit) tablet gabapentin 300 mg capsule 300 mg PO TID #270 cap 09/05/21 10/04/21 Rx simvastatin 10 mg tablet 10 mg PO QHS #90 tablet 09/05/21 10/03/21 Rx pantoprazole [Protonix] 40 mg PO BID 30 Days #60 tablet 09/18/21 10/03/21 Rx multivitamin [Daily Multivitamin] 1 tablet PO DAILY 10/03/21 10/03/21 History Sedation/Anesthesia: No previous sedation/anesthesia problems (including family history). 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) BPH NOS w/o ur obs/LUTS Displaced fracture of carpal bone of left wrist dorsal avulsion fracture of the triquetrum Dyslipidemia Gastric ulcer due to nonsteroidal anti-inflammatory drug (NSAID) Incisional hernia without mention of obstruction or gangrene Melena Nondisplaced fracture of left radial styloid process, initial encounter for closed fracture NSAID long-term use Peripheral neuropathy Pre-syncope Surgical History Surgical History History of appendectomy 2000 History of colostomy reversal 2000 History of laparotomy x2 - 2002 and 2003 due to infected sutures History of partial surgical removal of colon 1999 - due to rupture History of repair of rotator cuff 1995 - Right 2017 - Left History of tonsillectomy 195 Family History Family History Father Family history of genetic disorder Grandparent Family history of genetic disorder Social History Social History Years smoked: 50 Smoking status: Former smoker Tobacco type: pipe Second hand tobacco smoke exposure: No Smoking end date: 12/06/16 Alcohol intake: former Substance use: never Substance use type: does not use Gender identity (if verbalized by the patient): Male Spiritual care concerns: No Mod Sed Physical Exam Physical Exam Pre Procedural Exam: Normal: Appearance, Eyes, Nose, Throat, Lungs, Heart Rate, Heart Rhythm and Extremities Hours since solid foods: 14 Hours since liquid intake: 14 Mallampati Classification: class II Internal Medicine - PN: Obj Da Vital Signs Vital Signs: Vital Signs - 24 hr 10/04/21 07:25 Temperature 97.4 F L Pulse Rate 70 Respiratory Rate 18 Blood Pressure 130/69 Pulse Oximetry 100 Labs CBC & Chem 7: 10/04/21 07:26 Labs: Laboratory Results - last 24 hr 10/04/21 10/04/21 07:26 07:26 WBC 9.6 RBC 3.83 L
--- NOTE | 2021-10-04 08:09 | WPDMODSED ---
Moderate Sedation Note-Pt Data Patient Data Allergies Allergy/AdvReac Type Severity Reaction Status Date / Time cortisone Allergy Unknown Unknown Verified 10/04/21 07:52 Sulfa (Sulfonamide Allergy Unknown Unknown Verified 10/04/21 07:52 Antibiotics) Home Medications Medication Instructions Recorded Confirmed Type finasteride 5 mg tablet 5 mg PO HS 01/18/21 10/03/21 History tamsulosin 0.4 mg capsule 0.4 mg PO HS 01/18/21 10/03/21 History cholecalciferol (vitamin D3) 1,250 1,250 mcg PO WEEKLY #12 tablet 09/05/21 10/03/21 Rx mcg (50,000 unit) tablet gabapentin 300 mg capsule 300 mg PO TID #270 cap 09/05/21 10/04/21 Rx simvastatin 10 mg tablet 10 mg PO QHS #90 tablet 09/05/21 10/03/21 Rx pantoprazole [Protonix] 40 mg PO BID 30 Days #60 tablet 09/18/21 10/03/21 Rx multivitamin [Daily Multivitamin] 1 tablet PO DAILY 10/03/21 10/03/21 History Sedation/Anesthesia: No previous sedation/anesthesia problems (including family history). 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) BPH NOS w/o ur obs/LUTS Displaced fracture of carpal bone of left wrist dorsal avulsion fracture of the triquetrum Dyslipidemia Gastric ulcer due to nonsteroidal anti-inflammatory drug (NSAID) Incisional hernia without mention of obstruction or gangrene Melena Nondisplaced fracture of left radial styloid process, initial encounter for closed fracture NSAID long-term use Peripheral neuropathy Pre-syncope Surgical History Surgical History History of appendectomy 2000 History of colostomy reversal 2000 History of laparotomy x2 - 2002 and 2003 due to infected sutures History of partial surgical removal of colon 1999 - due to rupture History of repair of rotator cuff 1995 - Right 2017 - Left History of tonsillectomy 195 Family History Family History Father Family history of genetic disorder Grandparent Family history of genetic disorder Social History Social History Years smoked: 50 Smoking status: Former smoker Tobacco type: pipe Second hand tobacco smoke exposure: No Smoking end date: 12/06/16 Alcohol intake: former Substance use: never Substance use type: does not use Gender identity (if verbalized by the patient): Male Spiritual care concerns: No Mod Sed Physical Exam Physical Exam Pre Procedural Exam: Normal: Appearance, Eyes, Nose, Throat, Lungs, Heart Rate, Heart Rhythm and Extremities Hours since solid foods: 14 Hours since liquid intake: 14 Mallampati Classification: class II Internal Medicine - PN: Obj Da Vital Signs Vital Signs: Vital Signs - 24 hr 10/04/21 07:25 Temperature 97.4 F L Pulse Rate 70 Respiratory Rate 18 Blood Pressure 130/69 Pulse Oximetry 100 Labs CBC & Chem 7: 10/04/21 07:26 Labs: Laboratory Results - last 24 hr 10/04/21 10/04/21 07:26 07:26 WBC 9.6 RBC 3.83 L Hgb 10.8 L Hct 35.7 L MCV 93.2 MCH 28.2 MCHC 30.3 L RDW 18.2 H Plt Count 206 MPV 10.4 Immature Gran % (Auto) 0.5 Neut % (Auto) 44.9 L Lymph % (Auto) 36.9 Bradley % (Auto) 14.9 H Eos % (Auto) 2.2 Baso % (Auto) 0.6 Lymph # (Auto) 3.55 H Bradley # (Auto) 1.4 H Eos # (Auto) 0.2 Baso # (Auto) 0.1 Abs Immat Gran (auto) 0.05 H Absolute Neuts (auto) 4.3 Absolute Nucleated RBC 0.0 Nucleated RBC % 0.0 PT 13.0 INR 1.0 ASA Classification/Sedation ASA Classification/Sedation ASA Class: III Emergent: No Risks: Risks, benefits and alternatives explained and patient/family accepted plan for sedation. Patient re-evaluated immediately prior to sedation.
[2021-10-04 09:15] VITALS: BP 122/66; PULSE 68; RESP 16; O2SAT 99
[2021-10-04 09:30] VITALS: BP 121/66; PULSE 67; RESP 18; O2SAT 99
[2021-10-04 09:45] VITALS: BP 117/68; PULSE 67; RESP 17; O2SAT 94
[2021-10-04 10:00] VITALS: BP 110/59; PULSE 66; RESP 13; O2SAT 96
== END 2021-10-04 10:20 | disposition home or self-care (01) ==
PROVIDERS: PCP Family Medicine; Referring Provider Internal Medicine Hematology & Oncology; Visit Provider Radiology Diagnostic Radiology
DX: C85.10 Unspecified B-cell lymphoma, unspecified site (principal); E78.5 Hyperlipidemia, unspecified; N40.0 Benign prostatic hyperplasia without lower urinary tract symptoms; G62.9 Polyneuropathy, unspecified; Z90.49 Acquired absence of other specified parts of digestive tract; Z87.891 Personal history of nicotine dependence
CPT/HCPCS: 36415; 38222; 85025; 85610; 88305; 88311; 88313; 88333; 88341; 88342; 88364; 88365; J1642; J3010; J7040

== ENCOUNTER 2021-10-18 00:30 | Day surgery (SDC) | payer MEDICARE, SELFPAY ==
--- NOTE | 2021-10-13 15:17 | PC.NURSE ---
Report to the Outpatient Waiting Room, entrance under the green pavilion located off [facility], at time _1000_ on date _10/18/21_. OR Time: _1200__. - You and your visitor will be asked a series of questions to screen for COVID 19 for your protection. - A mask is required within the hospital. Preoperative COVID Testing Requirements: NONE No COVID Test needed if: (proof is required; if not received patient will have Rapid Test prior to entry) - Patient has received COVID Vaccine at least 14 days prior to procedure date or - Patient has positive COVID test result within last 90 days of surgery date. COVID Test needed if above criteria is not met If not COVID vaccinated a COVID test must be conducted within 72 hours of surgery and patient is asked to isolate self from time of testing until procedure. You will go to the [facility] for your COVID testing. The [facility] site is located at the corner of [address] from [facility]. You will only be called if COVID results are positive and your surgeon may reschedule your elective surgery date. Patients may have clear liquids (water, carbonated beverages, clear teas, apple juice) until 3 hours prior to surgery (0900 AM) with a maximum of 20 ounces. - No food from midnight until time of surgery - Infants may have breast milk until 4 hours before surgery, infant formula 6 hours prior to surgery. - Children will be allowed to drink immediately following surgery. If applicable, please bring a bottle or sippy cup to assist with drinking. Juice, water, soda, and popsicles are readily available. For infants on formula, please bring formula the day of surgery. Pacifiers are allowed. Take the following medications with a SIP of water the morning of surgery: GABAPENTIN Medications to discontinue per ANESTHESIA - _ALL VITAMINS 3 DAYS PRIOR TO SURGERY, Date to take last dose_10/14/21_ Please no make-up, nail danish, hairspray, perfume, deodorant, or body powder the day of surgery. No jewelry (including any body piercings) or valuables the day of surgery, leave them at home. Please take a shower or bath the night before, or the morning of, surgery with an antibacterial soap. Wear comfortable, loose fitting clothing. Children are encouraged to wear pajamas. - Jewelry must be removed prior to entering the operating room. Rings and piercings that are not removed may be cut off. - The hospital will not accept responsibility for valuables. - Please leave all valuables, including medications, at home the day of surgery. If you are going home after surgery, a licensed local driver must drive you home. - NO public transportation without another adult. - We recommend that an adult stay with you for 24 hours following discharge. - We also recommend that you do not drive, make important decision, drink alcoholic beverages, or take any drugs that were not prescribed by your health care provider for at least 24 hours after your discharge time. For Pediatric surgeries, we recommend two adults accompany the child home (only one inside the building at this time). One visitor will be allowed to accompany the patient into the hospital. Patients visitor will be instructed to remain with patient at all times or leave the building. We will allow the visitor to come back to the postoperative area when patient is ready. Follow any additional instructions given to you from your surgeon. Telephone instructions given to ____PT and asked if any additional questions and then verbalized understanding. Patient advised to call surgeon office or pre surgery nurse liaison [phone] if any additional questions.
[2021-10-13 15:19] VITALS: BMI 32.8
--- NOTE | ~2021-10-18 | XR_ITS ---
EXAMINATION: XR chest port-a-cath/central DATE: 10/18/2021 11:45 INDICATION: Port placement. TECHNIQUE: A single frontal view of the chest was obtained on 2 radiographs. COMPARISON: Chest 2 views 08/30/2010, PET CT 10/03/2021 FINDINGS: There are airspace opacities in left mid and lower lung zones. There is mild atelectasis in right lung base. A calcified right lung nodule and calcified right hilar lymph nodes are consistent with old granulomatous disease. No pleural effusion or pneumothorax. The heart size is normal. There is a right internal jugular port with tip in superior vena cava. IMPRESSION: 1. Port tip in superior vena cava. 2. Airspace opacities in left mid and lower lung zones, consistent with atelectasis versus pneumonia. Reviewed, dictated and finalized at location A. IMPRESSION: 1. Port tip in superior vena cava. 2. Airspace opacities in left mid and lower lung zones, consistent with atelect asis versus pneumonia.
--- NOTE | ~2021-10-18 | XR_ITS ---
EXAMINATION: XR fl guide central line place EXAM DATE: 10/18/2021 11:25 INDICATION: Right-sided portacatheter insertion. TECHNIQUE: Fluoroscopy used during XR fl guide central line place performed by Dr. Charlene Rodriguez MD. Radiologist was not present for the imaging or procedure. Total fluoroscopic time of 40 seconds . The DAP for this procedure was 0.23 mGym2. A total of 2 images sent to PACS from the exam. FINDINGS: Frontal image demonstrates right-sided approach portacatheter tip projecting over region o f the cavoatrial junction, but correlate with subsequent postprocedure chest x-ray. Correlate with p rocedure note. IMPRESSION: Fluoroscopy used during portacatheter insertion. Reviewed, dictated and finalized at location B.
[2021-10-18 10:15] VITALS: BP 127/67; PULSE 74; RESP 18; TEMP 36.3; O2SAT 100
[2021-10-18] MEDS: LACTATED RINGERS 1,000 ML 30 ML IV CONT (10:15)
--- NOTE | 2021-10-18 10:20 | PM.IMHP ---
H&P: HPI History of Present Illness Date/Time: 10/18/21 10:20 Pt is a 76 y/o M presenting for access for planned chemotx. Pt recently dx'd c lymphoma. Pt reports he is L handed. Pt denies any previous central venous catheterization. 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) BPH NOS w/o ur obs/LUTS Displaced fracture of carpal bone of left wrist dorsal avulsion fracture of the triquetrum Dyslipidemia Gastric ulcer due to nonsteroidal anti-inflammatory drug (NSAID) Incisional hernia without mention of obstruction or gangrene Melena Nondisplaced fracture of left radial styloid process, initial encounter for closed fracture NSAID long-term use Peripheral neuropathy Pre-syncope Surgical History Surgical History History of appendectomy 1999 History of colostomy reversal 1999 History of laparotomy x2 - 2002 and 2003 due to infected sutures History of partial surgical removal of colon 1999 - due to rupture History of repair of rotator cuff 1995 - Right 2017 - Left History of tonsillectomy 1951 Family History Family History Father Family history of genetic disorder Grandparent Family history of genetic disorder Social History Social History Years smoked: 50 Smoking status: Former smoker Tobacco type: pipe Second hand tobacco smoke exposure: No Smoking end date: 12/06/16 Alcohol intake: current Drinks per week: 2 Alcohol use details: BEER Substance use: never Substance use type: does not use Living arrangements: with family Gender identity (if verbalized by the patient): Male Spiritual care concerns: No Meds Home Medications and Allergies Home Medications Medication Instructions Recorded Confirmed Type finasteride 5 mg tablet 5 mg PO HS 01/18/21 10/13/21 History tamsulosin 0.4 mg capsule 0.4 mg PO HS 01/18/21 10/13/21 History cholecalciferol (vitamin D3) 1,250 1,250 mcg PO WEEKLY #12 tablet 09/05/21 10/13/21 Rx mcg (50,000 unit) tablet gabapentin 300 mg capsule 300 mg PO TID #270 cap 09/05/21 10/13/21 Rx simvastatin 10 mg tablet 10 mg PO QHS #90 tablet 09/05/21 10/13/21 Rx pantoprazole [Protonix] 40 mg PO BID 30 Days #60 tablet 09/18/21 10/13/21 Rx multivitamin [Daily Multivitamin] 1 tablet PO DAILY 10/03/21 10/13/21 History Allergies Allergy/AdvReac Type Severity Reaction Status Date / Time cortisone Allergy Unknown RED/SWOLLEN Verified 10/13/21 15:10 AT INJ SITE Sulfa (Sulfonamide Allergy Unknown Unknown- Verified 10/13/21 15:10 Antibiotics) A CHILD Exam Const: General: cooperative, comfortable and no acute distress Nutritional Appearance: obese Limitations: no limitations Neck: Neck: normal visual inspection, full ROM and no lymphadenopathy Chest: Chest palpation & inspection: normal inspection of the chest Resp: Effort & Inspection: normal respiratory effort Auscultation: clear to auscultation bilaterally Cardio: Rate: regular rate Rhythm: regular rhythm Assessment and Plan Assessment and plan (1) B-cell lymphoma: Onset Date: ~09/2021 Code(s): C85.10 - Unspecified B-cell lymphoma, unspecified site Status: Acute Assessment and Plan: will setup for placement of VAD for chemo access
--- NOTE | 2021-10-18 10:23 | WPDHPUPDATE1 ---
History and Physical Update Update Date/Time: 10/18/21 10:23 History and Physical has been reviewed, including an updated exam of the patient. There are NO changes in the patient's condition. Risks, benefits, and alternatives have been discussed and questions answered. Patient agrees to proceed with procedure.
--- NOTE | 2021-10-18 10:24 | WPDANESEPPF ---
Anes - Initial Pre Proc Eval Procedure: Operation Date: 10/18/21 12:00 Proposed Procedures p Insertion Hood Cath - Charlene Rodriguez MD Date/Time: 10/18/21 10:24 Surgeon: Charlene Rodriguez MD Pre Op Diagnosis: b-cell lymphoma Patient Data Age: 76 Gender: M Height: 1.8 m Weight: 106.8 kg Allergies Allergy/AdvReac Type Severity Reaction Status Date / Time cortisone Allergy Unknown RED/SWOLLEN Verified 10/13/21 15:10 AT INJ SITE Sulfa (Sulfonamide Allergy Unknown Unknown- Verified 10/13/21 15:10 Antibiotics) A CHILD Home Medications Medication Instructions Recorded Confirmed Type finasteride 5 mg tablet 5 mg PO HS 01/18/21 10/13/21 History tamsulosin 0.4 mg capsule 0.4 mg PO HS 01/18/21 10/13/21 History cholecalciferol (vitamin D3) 1,250 1,250 mcg PO WEEKLY #12 tablet 09/05/21 10/13/21 Rx mcg (50,000 unit) tablet gabapentin 300 mg capsule 300 mg PO TID #270 cap 09/05/21 10/13/21 Rx simvastatin 10 mg tablet 10 mg PO QHS #90 tablet 09/05/21 10/13/21 Rx pantoprazole [Protonix] 40 mg PO BID 30 Days #60 tablet 09/18/21 10/13/21 Rx multivitamin [Daily Multivitamin] 1 tablet PO DAILY 10/03/21 10/13/21 History Patient hx anesthesia problems: none Family hx anesthesia problems: none Results Review: All pre-operative results and documents have been reviewed as part of the pre-operative evaluation. 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) BPH NOS w/o ur obs/LUTS Displaced fracture of carpal bone of left wrist dorsal avulsion fracture of the triquetrum Dyslipidemia Gastric ulcer due to nonsteroidal anti-inflammatory drug (NSAID) Incisional hernia without mention of obstruction or gangrene Melena Nondisplaced fracture of left radial styloid process, initial encounter for closed fracture NSAID long-term use Peripheral neuropathy Pre-syncope Surgical History Surgical History History of appendectomy 2000 History of colostomy reversal 2000 History of laparotomy x2 - 2002 and 2004 due to infected sutures History of partial surgical removal of colon 1999 - due to rupture History of repair of rotator cuff 1996 - Right 2017 - Left History of tonsillectomy 195 Family History Family History Father Family history of genetic disorder Grandparent Family history of genetic disorder Social History Social History Years smoked: 50 Smoking status: Former smoker Tobacco type: pipe Second hand tobacco smoke exposure: No Smoking end date: 12/06/16 Alcohol intake: current Drinks per week: 2 Alcohol use details: BEER Substance use: never Substance use type: does not use Living arrangements: with family Gender identity (if verbalized by the patient): Male Spiritual care concerns: No Anes - Eval Final PreProcedure Day of Procedure 10/18/21 10:24 Patient weight: obese Heart: regular rate and rhythm Lungs: clear to auscultation and normal air movement Airway: Mallampati scale class II Neurological: alert and oriented Last oral intake: >/= 8 hours ASA classification: III Emergent: no Anesthetic plan: proceed Anesthesia type and monitoring: general GIVS and standard monitoring Results Review: All pre-operative results and documents have been reviewed as part of the pre-operative evaluation. Informed Consent: The patient's anesthetic plan and its attendant risks and benefits were discussed with the patient/family/POA. Questions were solicited and answers provided to the satisfaction of the patient/family/POA.
[2021-10-18] MEDS: KETOROLAC 15 MG/ML VIAL (*BKC) IV PUSH (10:29)
[2021-10-18] MEDS: ceFAZolin 2 GM/D5W 50 ML 2 GM/50 ML BAG IVPB (10:52)
[2021-10-18] MEDS: HEPARIN SODIUM 5,000 UNITS/ML VIAL 5000 UNITS IRRIGATION (11:09)
[2021-10-18] MEDS: HEPARIN SODIUM, PORCINE 10,000 UNITS/10 ML VIAL 10 UNITS IV PUSH (11:25)
--- NOTE | 2021-10-18 11:27 | W.PM.PROC2 ---
Procedure Note - Detailed Date of Procedure 10/18/21 Pre-op Diagnosis b-cell lymphoma Post-op Diagnosis Same Procedure Performed placement of right internal jugular venous access device under both ultrasound and fluroscopic guidance Surgeon Charlene Rodriguez MD Anesthesia MAC and Local Indications 76 y/o M c lymphoma needing access for chemotx Findings 1st stick right internal jugular vein under U/S guidance Description of Procedure Patient was brought into the operating room and placed in the supine position. After adequate induction of mac anesthesia, the patient was prepped and draped in normal sterile fashion. Time-out was then done to verify the patient's identity, as well as the procedure being performed. I used the ultrasound to gain access into the right internal jugular vein. Once access was gained, I placed the guidewire in the vein and confirmed proper positioning using fluoroscopy. I then locally anesthetized an area in the right chest. I then made an incision including making a subcutaneous pocket inferiorly to allow placement of the port itself. I proceeded to tunnel the catheter from the chest to the right neck insertion site. I then placed a dilating sheath over the guidewire into the right internal jugular vein via sterile Seldinger technique. This was once again done and confirmed via fluoroscopic guidance. I then removed the dilator and the guidewire, now just leaving the sheath in the vein. I then fed the previously flushed catheter into the right internal jugular vein under fluoroscopic guidance. At approximately 20 cm, the catheter was noted to be near the atrial caval junction. I then peeled away the sheath, now just leaving the catheter in the vein. I then was able to easily draw and flush from the catheter. The catheter was cut to fit and attached to the port itself. The port was placed into the previously made subcutaneous pocket and sutured in with 0 Ethibond suture. Final fluoroscopic view showed the termination of the catheter at the atrial caval junction with a nice smooth curvature back to the port itself. I was able to gain access to the port with a Moss needle and was able to easily draw and flush from the port. I then flushed 4 cc of a final heparin flush into the port. The incision was closed with 3 0 Vicryl suture in the subcutaneous tissue and the skin was closed with 4 O Monocryl subcuticular suture. Dermabond was then placed on wound. The patient tolerated the procedure well and will be sent to the recovery room in stable condition. Implants RIJ VAD Estimated Blood Loss 10 Pathology None sent Complications No immediate complications Condition Stable Disposition PACU
[2021-10-18 11:28] VITALS: BP 127/67; PULSE 74; RESP 18; TEMP 36.3; O2SAT 90
[2021-10-18 11:58] VITALS: BP 112/63; PULSE 71; RESP 18; O2SAT 93
[2021-10-18 12:28] VITALS: BP 98/59; PULSE 63; RESP 16; O2SAT 93
[2021-10-18 12:55] VITALS: BP 94/62; PULSE 64; RESP 16; O2SAT 93
--- NOTE | 2021-10-18 12:56 | SUR.PHASEII ---
This nurse called md jean and asked about pt O2 saturation since it was dipping in the upper 80s but majority was in low 90s he said he was fine with pt going home pt given an IS and instructed on how to use it. pt also had a little blood dripping from his nose and this nurse put gauze in it and informed md Jean and he was ok with pt going home. pt informed to call MD if nose blood drip gets worse. pt had an nasal airway in during procedure.
== END 2021-10-18 13:00 | disposition home or self-care (01) ==
PROVIDERS: PCP Family Medicine; Visit Provider Surgery
PROC: (CPT 36561; principal; 2021-10-18 12:00)
DX: C85.10 Unspecified B-cell lymphoma, unspecified site (principal); E78.5 Hyperlipidemia, unspecified; N40.0 Benign prostatic hyperplasia without lower urinary tract symptoms; G62.9 Polyneuropathy, unspecified; Z87.11 Personal history of peptic ulcer disease; Z90.49 Acquired absence of other specified parts of digestive tract; Z87.891 Personal history of nicotine dependence
CPT/HCPCS: 36561; 77001; C1788; J0690; J1644; J1885; J2405; J2704; J3010; J7030; J7120

== ENCOUNTER 2021-10-25 12:57 | Outpatient (CLI) | payer MEDICARE, SELFPAY ==
--- NOTE | 2021-10-25 | ECHO_ITS ---
Patient Info Name: Wilfrido Raymond Age: 76 years : 1945 Gender: Male Ht: 71 in Wt: 235 lbs BSA: 2.34 m2 HR: 64 bpm BP: 121 / 72 mmHg Heart Rhythm: Sinus Rhythm Exam Date: 10/25/2021 2:14 PM Exam Location: [facility] Patient Status: Outpatient Admit Date: 10/25/2021 Staff Ordering Physician: Moy Figueroa MD Big Data Software Engineer: Chris Flores, L[place], RT Attending Provider: Moy Figueroa MD Referring Physician: Henry SAUL; Exam Type: CA echo doppler color flow Study Info Indications C80.1 - Malignant (primary) neoplasm, unspecified Complete two-dimensional, color flow and Doppler transthoracic echocardiogram is performed. Strain analysis performed. Summary 1. Complete two-dimensional, color flow and Doppler transthoracic echocardiogram is performed. 2. Left ventricular chamber dimension is normal. 3. Left ventricular systolic function is normal, estimated at 65-70%. 4. There is mildly increased left ventricular wall thickness. 5. The left ventricular diastolic function is grade II diastolic dysfunction. 6. Global longitudinal strain is normal at -22 %. 7. Left atrial chamber dimension is moderately enlarged. 8. Right atrial chamber dimension is moderately enlarged. Left Ventricle Left ventricular chamber dimension is normal. Left ventricular systolic function is normal, estimated at 65-70%. There is mildly increased left ventricular wall thickness. The left ventricular diastolic function is grade II diastolic dysfunction. Global longitudinal strain is normal at -22 %. Right Ventricle Right ventricular chamber dimension is normal. Right ventricular systolic function is normal. Left Atria Left atrial chamber dimension is moderately enlarged. Right Atria Right atrial chamber dimension is moderately enlarged. Aortic Valve The aortic valve is not well visualized. There is no aortic valve stenosis. There is no aortic valve regurgitation. Pulmonic Valve The pulmonic valve is not well visualized. Mitral Valve The mitral valve has normal leaflets. There is trace mitral valve regurgitation. The mitral valve annulus is mildly calcified. Tricuspid Valve The tricuspid valve leaflets are normal. There is mild tricuspid valve regurgitation. Unable to estimate PA systolic pressure due to poor spectral resolution of tricuspid regurgitant jet velocity. Pericardium/Pleural The pericardium appears normal. There is no pericardial effusion. Inferior Vena Cava Normal inferior vena cava with >50% collapse upon inspiration consistent with normal right atrial pressure, 5 mmHg. Aorta The aortic root size at the sinus of Valsalva is normal. There is mild aortic atherosclerosis. Left Ventricular Outflow Tract Name Value Normal LVOT 2D LVOT Diameter 2.1 cm LVOT Doppler LVOT Peak Gradient 6 mmHg LVOT Mean Gradient 3 mmHg LVOT VTI 26 cm LVOT VTI/AV VTI Ratio 0.9 LVOT Stroke Volume 93 ml LVOT CO 6
== END 2021-10-25 12:58 | disposition home or self-care (01) ==
LOC: ANHCARD 13:00
PROVIDERS: PCP Family Medicine; Visit Provider Internal Medicine Hematology & Oncology
DX: C85.15 Unspecified B-cell lymphoma, lymph nodes of inguinal region and lower limb (principal); Z79.899 Other long term (current) drug therapy; I51.7 Cardiomegaly
CPT/HCPCS: 36415; 80053; 85025; 86706; 87340; 93306

== ENCOUNTER 2022-01-22 09:31 | Outpatient (CLI) | payer MEDICARE, SELFPAY ==
--- NOTE | 2022-01-22 | ECHO_ITS ---
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 Summary 1. Complete two-dimensional, color flow and Doppler transthoracic echocardiogram is performed. 2. Left ventricular chamber dimension is normal. 3. Left ventricular systolic function is hyperdynamic, estimated at >70%. 4. Right ventricular chamber dimension is normal. 5. Left atrial chamber dimension is mildly enlarged. 6. There is trace tricuspid valve regurgitation. 7. STAT interpretation requested/reason for this not stated. Left Ventricle Left ventricular chamber dimension is normal. Left ventricular systolic function is hyperdynamic, estimated at >70%. The left ventricular diastolic function is normal. Right Ventricle Right ventricular chamber dimension is normal. Left Atria Left atrial chamber dimension is mildly enlarged. Right Atria Right atrial chamber dimension is normal. Aortic Valve The aortic valve is trileaflet. There is mild aortic valve sclerosis. Pulmonic Valve The pulmonic valve is not well visualized. Mitral Valve The mitral valve has normal leaflets. Tricuspid Valve The tricuspid valve leaflets are normal. There is trace tricuspid valve regurgitation. Pericardium/Pleural The pericardium appears normal. Aorta The aortic root size at the sinus of Valsalva is normal. Left Ventricular Outflow Tract Name Value Normal LVOT 2D LVOT Diameter 2.0 cm LVOT Doppler LVOT Peak Gradient 5 mmHg LVOT Mean Gradient 4 mmHg LVOT VTI 28 cm LVOT VTI/AV VTI Ratio 1.0 LVOT Stroke Volume 87 ml LVOT CO 7.3 l/min LVOT CI 3.1 l/min/m2 Pulmonic Valve Name Value Normal RVOT Doppler RVOT Peak Gradient 2 mmHg PV Doppler PV Peak Gradient 6 mmHg Mitral Valve Name Value Normal
== END 2022-01-22 09:32 | disposition home or self-care (01) ==
LOC: ANHCARD 09:39
PROVIDERS: PCP Family Medicine; Visit Provider Internal Medicine Hematology & Oncology
DX: C85.15 Unspecified B-cell lymphoma, lymph nodes of inguinal region and lower limb (principal); I51.7 Cardiomegaly
CPT/HCPCS: 93306

== ENCOUNTER 2022-03-01 08:54 | Outpatient (CLI) | payer MEDICARE, SELFPAY ==
--- NOTE | ~2022-03-01 | PE_ITS ---
EXAMINATION: PET skull to mid thigh DATE: 03/01/2022 10:58 INDICATION: B-cell lymphoma TECHNIQUE: Blood glucose level was 113 mg/dL. 11.338 mCi of 18-fluorodeoxyglucose (18-FDG) was admini stered i.v. Low dose computed tomography (CT) images were acquired from the base of the brain to the proximal thighs for attenuation correction and anatomic localization. Positron emission tomography (P ET) images were acquired in the same distribution beginning 59 minutes after injection. The dose-demetrius th product (DLP) was 1189.71 mGy-cm. COMPARISON: 10/03/2021 FINDINGS: Head/neck: There is persistent but improved lymphadenopathy of the neck. For reference, a 9 mm right posterior cervical triangle lymph node previously measured 14 mm. Lymph nodes demonstrate low level F DG uptake with slight decrease since the comparison examination. Chest: Pathologically enlarged supraclavicular, axillary, mediastinal, and hilar lymphadenopathy pers ists with slight improvement. For instance a 1.8 cm lymph node of the right axilla previously measure d 2.5 cm. In addition, there is persistent but decreased low-grade lymph node FDG uptake. There are s mall pleural effusions with decrease on the left. No pneumothorax is identified. The heart size is no rmal. There is calcified coronary artery atherosclerosis. Dependent atelectasis is noted. The previou sly described focus of FDG uptake in the skin of the right shoulder is no longer evident. Abdomen/pelvis/proximal thighs: Physiologic FDG activity is present in the bowel and urinary tract. Abdominal, pelvic, and retroperit isaacs lymphadenopathy persists with interval improvement. For instance, a 1.7 cm left external iliac chain lymph node previously measured 2.3 cm. There is persistent but decreased low-grade lymph node F DG uptake. A stone is present in the nondistended gallbladder. The liver, spleen, pancreas, and adren al glands are normal. The kidneys are unremarkable. There is a moderate sized umbilical hernia contai dante fat. Musculoskeletal: Diffuse marrow uptake persists but has also decreased. IMPRESSION: 1. Diffuse lymphadenopathy of the neck, chest, abdomen, and pelvis with interval decrease in size of lymph nodes and decrease in associated FDG uptake, consistent with treatment response. Reviewed, dictated and finalized at location B. IMPRESSION: 1. Diffuse lymphadenopathy of the neck, chest, abdomen, and pelvis with interva l decrease in size of lymph nodes and decrease in associated FDG uptake, consis tent with treatment response.
[2022-03-01 09:26] LABS: Glucose Point of Care 113 mg/dl (65-105)
== END 2022-03-01 08:55 | disposition home or self-care (01) ==
PROVIDERS: PCP Family Medicine; Visit Provider Internal Medicine Hematology & Oncology
DX: C85.15 Unspecified B-cell lymphoma, lymph nodes of inguinal region and lower limb (principal)
CPT/HCPCS: 78815; A9552

== ENCOUNTER 2022-03-02 01:02 | Day surgery (SDC) | payer MEDICARE, SELFPAY ==
--- NOTE | ~2022-03-02 | BM_ITS ---
EXAMINATION: CCL bone marrow asp w bx diag DATE: 03/02/2022 09:30 INDICATION: B-cell lymphoma of lymph nodes. TECHNIQUE: A time-out was performed to verify the patient's name, date of , and procedure to b e performed. The procedure including the risks, benefits, and alternatives was discussed with the pat ient. Risks discussed included bleeding and infection. The patient understood the risks and agreed to proceed. The skin overlying the left ilium was prepped and draped in usual sterile fashion. Anesth etic was administered with 1% lidocaine subcutaneously. Moderate sedation was achieved with 2 mg Vers ed IV and 100 mg IV. An 11 gauge needle was inserted into the ilium with fluoroscopic guidance. Bone marrow was aspirated. An 8 gauge needle was then inserted into the ilium with fluoroscopic guidance. A core bone marrow biopsy was obtained. There were no immediate complications. Fluoroscopy exposure time was 0.0 minutes. The total number of images was 3. FINDINGS: Real-time fluoroscopy demonstrates a marker overlying the left posterior superior iliac spi ne. IMPRESSION: 1. Fluoro-guided bone marrow aspiration. 2. Fluoro-guided bone marrow core biopsy. Reviewed, dictated and finalized at location A.
[2022-03-02 07:13] VITALS: BP 126/89; PULSE 72; RESP 16; TEMP 36.4; O2SAT 97; BMI 73.7
[2022-03-02 07:20] LABS: Basophils Absolute Auto 0.1 K/mm3 (0.0-0.1); Basophils Percent Auto 1.7 % (0.2-1.2); Eosinophils Absolute Auto 0.3 K/mm3 (0-0.3); Eosinophils Percent Auto 5.5 % (0-4.4); Hemoglobin 13.8 g/dL (14.0-18.0); Immature Granulocyte Absolute 0.01 K/mm3 (0.00-0.031); Immature Granulocyte Percent A 0.2 % (0-0.5); Lymphocytes Absolute Auto 2.22 K/mm3 (0.9-3.2); Lymphocytes Percent Auto 41.9 % (18.3-44.2); Mean Corpuscular HGB Conc 31.4 g/dl (32-36); Mean Corpuscular Hemoglobin 26.7 pg (26-34); Mean Corpuscular Volume 85.1 fl (80-100); Mean Platelet Volume 10.1 fl (7.4-10.4); Monocytes Absolute Auto 1.6 K/mm3 (0.1-0.6); Monocytes Percent Auto 29.6 % (2.6-8.5); Neutrophils Absolute Auto 1.1 K/mm3 (1.3-6.7); Neutrophils Percent Auto 21.1 % (45.5-73.1); Platelet Count Result 218 k/mm3 (150-375); Red Blood Count 5.17 M/mm3 (4.6-6.20); Red Cell Distribution Width 17.3 % (11.5-14.5); White Blood Count 5.3 K/mm3 (4.5-10.0)
[2022-03-02 07:30] LABS: Prothrombin Time 13.1 Seconds (11.1-14.7)
--- NOTE | 2022-03-02 08:10 | WPDMODSED ---
Moderate Sedation Note-Pt Data Patient Data Diagnosis: B-cell lymphoma of lymph node. Present Complaint: B-cell lymphoma of lymph node. Procedure to be performed/Plan: Fluoro-guided bone marrow biopsy of ilium. Allergies Allergy/AdvReac Type Severity Reaction Status Date / Time cortisone Allergy Unknown RED/SWOLLEN Verified 03/02/22 07:11 AT INJ SITE Sulfa (Sulfonamide Allergy Unknown Unknown- Verified 03/02/22 07:11 Antibiotics) A CHILD Home Medications Medication Instructions Recorded Confirmed Type finasteride 5 mg tablet 5 mg PO HS 01/18/21 03/01/22 History tamsulosin 0.4 mg capsule 0.4 mg PO HS 01/18/21 03/01/22 History cholecalciferol (vitamin D3) 1,250 1,250 mcg PO WEEKLY #12 tabs 09/05/21 03/01/22 Rx mcg (50,000 unit) tablet simvastatin 10 mg tablet 10 mg PO QHS #90 tabs 09/05/21 03/01/22 Rx multivitamin 1 tablet PO DAILY 10/03/21 03/01/22 History lidocaine 3 % topical cream See Rx Instructions .Route .COMPLEX 10/24/21 03/01/22 History ondansetron 8 mg disintegrating 8 mg PO Q8H PRN Nausea 10/24/21 03/01/22 History tablet mecobalamin (vitamin B12) 1,000 1,000 mcg PO DAILY 01/19/22 03/01/22 History mcg chewable tablet (B12 Active) pantoprazole 40 mg tablet,delayed 40 mg PO QAM 01/19/22 03/01/22 History release gabapentin 300 mg capsule 100 mg PO TID 02/28/22 03/01/22 History Current Medications: Active Medications Sodium Chloride (Normal Saline Iv) 1,000 mls @ 30 mls/hr IV CONT .Q24H [facility] Sedation/Anesthesia: No previous sedation/anesthesia problems (including family history). [facility] Past Medical History Medical History Acute blood loss anemia B-cell lymphoma (~09/2021) BPH NOS w/o ur obs/LUTS Displaced fracture of carpal bone of left wrist dorsal avulsion fracture of the triquetrum Dyslipidemia Gastric ulcer due to nonsteroidal anti-inflammatory drug (NSAID) Incisional hernia without mention of obstruction or gangrene Melena Nondisplaced fracture of left radial styloid process, initial encounter for closed fracture NSAID long-term use Peripheral neuropathy Pre-syncope Surgical History Surgical History History of appendectomy 1999 History of colostomy reversal 1999 History of laparotomy x2 - 2003 and 2004 due to infected sutures History of partial surgical removal of colon 1999 - due to rupture History of repair of rotator cuff 1995 - Right 2017 - Left History of tonsillectomy 195 Family History Family History Father Family history of genetic disorder Grandparent Family history of genetic disorder Social History Social History Years smoked: 50 Smoking status: Former smoker Tobacco type: pipe Second hand tobacco smoke exposure: No Smoking end date: 12/06/16 Alcohol intake: current Drinks per week: 2 Alcohol use details: BEER Substance use: never Substance use type: does not use Gender identity (if verbalized by the patient): Male Spiritual care concerns: No Mod Sed Physical Exam Physical Exam Pre Procedural Exam: Normal: Lungs, Heart Rate, Heart Rhythm and Abdomen and Variation: Appearance (Obese) Hours since solid foods: 12 Hours since liquid intake: 12 Mallampati Classification: class II Internal Medicine - PN: Obj Da Vital Signs Vital Signs: Vital Signs - 24 hr 03/02/22 07:13 Temperature 36.4 C L Pulse Rate 72 Respiratory Rate 16 Blood Pressure 126/89 Pulse Oximetry 97 Oxygen Delivery Room Air Meds/Results Medications: Active Medications Generic Name Dose Route Start Last Admin Trade Name Freq PRN Reason Stop Dose Admin Sodium Chloride 1,000 mls @ 30 mls/hr 03/02/22 07:00 Normal Saline Iv IV CONT .Q24H TOBIAS Labs CBC & Chem 7: 03/02/22 07:11 L
[2022-03-02 09:10] VITALS: BP 122/68; PULSE 65; RESP 15; O2SAT 92
[2022-03-02 09:25] VITALS: BP 122/68; PULSE 66; RESP 16; O2SAT 93
[2022-03-02 09:40] VITALS: BP 110/66; PULSE 63; RESP 11; O2SAT 94
[2022-03-02 09:55] VITALS: BP 114/68; PULSE 65; RESP 16; O2SAT 95
== END 2022-03-02 10:22 | disposition home or self-care (01) ==
PROVIDERS: PCP Family Medicine; Visit Provider Radiology Diagnostic Radiology
DX: C85.10 Unspecified B-cell lymphoma, unspecified site (principal); E78.5 Hyperlipidemia, unspecified; G62.9 Polyneuropathy, unspecified; Z90.49 Acquired absence of other specified parts of digestive tract; Z87.891 Personal history of nicotine dependence
CPT/HCPCS: 36415; 38222; 85025; 85610; 88184; 88185; 88305; 88311; 88313; J1642; J2250; J3010; J7030

== ENCOUNTER 2022-05-24 07:16 | Outpatient (CLI) | payer MEDICARE, SELFPAY ==
--- NOTE | 2022-05-24 | ECHO_ITS ---
Patient Info Name: Wilfrido Raymond Age: 76 years : 1945 Gender: Male Ht: 71 in Wt: 240 lbs BSA: 2.37 m2 HR: 61 bpm BP: 125 / 84 mmHg Heart Rhythm: Sinus Rhythm Exam Date: 05/24/2022 9:05 AM Exam Location: [facility] Patient Status: Outpatient Admit Date: 05/24/2022 Staff Ordering Physician: Moy Figueroa MD Commercial Accountant: Chris Flores, [place]AL[place], RT Attending Provider: Moy Figueroa MD Referring Physician: Henry SAUL; Exam Type: CA echo doppler color flow Study Info Indications C80.1 - Malignant (primary) neoplasm, unspecified Complete two-dimensional, color flow and Doppler transthoracic echocardiogram is performed. Strain analysis performed. Summary 1. Technically difficult study. 2. Left ventricular ejection fraction appears to be preserved (LVEF 50-55%), however, the endocardial borders were not well-visualized, limiting interpretation. Consider limited echo with contrast or an alternative cardiac imaging modality for an accurate measurement of LVEF. Regional wall motion abnormalities cannot be excluded given poor visualization of endocardial borders. 3. No significant valvular disease appreciated on this study. Left Ventricle Left ventricular chamber dimension is normal. Left ventricular systolic function is normal, estimated at 50-55%. There is no increased left ventricular wall thickness. The left ventricular diastolic function is grade I diastolic dysfunction. Global longitudinal strain is -15 %. Right Ventricle Right ventricular chamber dimension is normal. Right ventricular systolic function is normal. Left Atria Left atrial chamber dimension is normal. Right Atria Right atrial chamber dimension is normal. Atrial Septum Intact interatrial septum visualized by color flow imaging. Aortic Valve The aortic valve is not well visualized. There is no aortic valve stenosis. There is no aortic valve regurgitation. Pulmonic Valve The pulmonic valve is not well visualized. Mitral Valve The mitral valve has normal leaflets. There is no mitral valve regurgitation. Tricuspid Valve The tricuspid valve leaflets are not well visualized. There is mild tricuspid valve regurgitation. Pericardium/Pleural There is no pericardial effusion. Inferior Vena Cava Normal inferior vena cava with <50% collapse upon inspiration consistent with normal right atrial pressure. Aorta The aortic root size at the sinus of Valsalva is not well visualized. Left Ventricular Outflow Tract Name Value Normal LVOT 2D LVOT Diameter 2.0 cm LVOT Doppler LVOT Peak Gradient 3 mmHg LVOT Mean Gradient 2 mmHg LVOT VTI 22 cm LVOT VTI/AV VTI Ratio 0.7 LVOT Stroke Volume 70 ml LVOT CO 4.1 l/min LVOT CI 1.7 l/min/m2 Mitral Valve Name Value Normal
== END 2022-05-24 07:17 | disposition home or self-care (01) ==
LOC: ANHCARD 07:19
PROVIDERS: PCP Family Medicine; Visit Provider Internal Medicine Hematology & Oncology
DX: C85.15 Unspecified B-cell lymphoma, lymph nodes of inguinal region and lower limb (principal); I51.7 Cardiomegaly
CPT/HCPCS: 93306

== ENCOUNTER 2022-05-28 09:30 | Outpatient (CLI) | payer MEDICARE, SELFPAY ==
[2022-05-28 13:46] LABS: Hemoglobin A1C 5.9 % (<5.7)
[2022-05-28 13:55] LABS: Vitamin D 25 Hydroxy 49.4 ng/mL
[2022-05-28 14:16] LABS: Cholesterol 115 mg/dL (0-200); HDL Direct 29 mg/dL; Triglycerides 87 mg/dL (<150)
[2022-05-28 14:26] LABS: LDL Cholesterol Direct 73 mg/dL
== END 2022-05-28 09:31 | disposition home or self-care (01) ==
LOC: ANHLAB 09:36
PROVIDERS: PCP Family Medicine; Visit Provider Family Medicine
DX: R73.9 Hyperglycemia, unspecified (principal); E55.9 Vitamin D deficiency, unspecified; E78.5 Hyperlipidemia, unspecified; C85.10 Unspecified B-cell lymphoma, unspecified site; D64.9 Anemia, unspecified; G62.9 Polyneuropathy, unspecified
CPT/HCPCS: 36415; 80061; 82306; 83036; 84443

== ENCOUNTER 2023-03-22 13:36 | Inpatient (IN) | payer MEDICARE, OTHER, SELFPAY ==
[2023-03-22] VITALS (12 sets, daily range): BP systolic 100–133; BP diastolic 67–99; PULSE 99–152; RESP 16–20; TEMP 36.6; O2SAT 95–98
--- NOTE | ~2023-03-22 | CT_ITS ---
EXAMINATION: CTA chest PE protocol DATE: 03/22/2023 16:39 CDT INDICATION: Tachycardia TECHNIQUE: Computed tomographic angiography (CTA) of the chest was performed with 100 mL Omnipaque-35 0 intravenous contrast. The dose-length product was 938.44 mGy-cm. Maximum intensity projection 3D-re constructions of the aorta and other arteries were constructed by the technologist on a separate work station. COMPARISON: chest x-ray dated 03/22/2023. FINDINGS: There is axillary, mediastinal and bilateral hilar lymphadenopathy, suspicious for lymphoma versus metastatic disease. Trace pleural effusions. Heart size normal. Study is technically adequate without evidence for pulmonary embolism. No evidence for aortic aneurysm or dissection. Trace pleura l effusions. There are gallstones. Left renal cysts. There is interlobular septal thickening of the l ower lobes with subpleural bands, suspicious for chronic interstitial lung disease. There are areas o f tree-in-bud nodular configuration, most likely infectious/inflammatory. There is lower lobe bronchi ectasis. No pneumothorax. IMPRESSION: 1. No evidence for pulmonary embolism. 2: Extensive thoracic lymphadenopathy, suspicious for lymphoma or metastatic disease. Correlate for history of malignancy. 3: Lower lobe interstitial lung disease, likely chronic. Areas of tree-in-bud configuration are most likely infectious/inflammatory. 4: Cholelithiasis. Reviewed, dictated and finalized at location B. IMPRESSION: 1. No evidence for pulmonary embolism. 2: Extensive thoracic lymphadenopathy, suspicious for lymphoma or metastatic d isease. Correlate for history of malignancy. 3: Lower lobe interstitial lung disease, likely chronic. Areas of tree-in-bud c onfiguration are most likely infectious/inflammatory. 4: Cholelithiasis.
--- NOTE | ~2023-03-22 | XR_ITS ---
EXAMINATION: XR chest 2V DATE: 03/22/2023 14:46 INDICATION: Palpitations TECHNIQUE: PA and lateral views of the chest are obtained. COMPARISON: 10/18/2021 FINDINGS: The lungs are free of acute opacities. No pleural effusion or pneumothorax. The cardiomedia stinal silhouette is normal. There is mild thoracic spondylosis. A right internal jugular Port-A-Cath ends with its tip in the distal superior vena cava. IMPRESSION: 1. No acute cardiopulmonary abnormality. Reviewed, dictated and finalized at location F.
--- NOTE | 2023-03-22 13:37 | ECG_ITS ---
Measurements Intervals [place] Rate: 144 P: 262 AK: 111 QRS: 2 QRSD: 192 T: 240 QT: 270 QTc: 418 Interpretive Statements ATRIAL FLUTTER WITH RAPID VENTRICULAR RESPONSE ABNORMAL ECG COMPARED TO ECG 09/16/2021 10:54:49 ATRIAL FLUTTER NOW PRESENT Electronically Signed On 03-22-2023 20:35:31 CDT by Nick Garcia D.O.
[2023-03-22] MEDS: ASPIRIN 81 MG CHEWABLE TABLET 324 MG PO (13:51)
[2023-03-22 14:18] LABS: Basophils Absolute Auto 0.1 K/mm3 (0.0-0.1); Basophils Percent Auto 0.9 % (0.2-1.2); Eosinophils Absolute Auto 0.2 K/mm3 (0-0.3); Eosinophils Percent Auto 1.6 % (0-4.4); Hematocrit 46.6 % (42.0-52.0); Hemoglobin 15.3 g/dL (14.0-18.0); Immature Granulocyte Absolute 0.04 K/mm3 (0.00-0.031); Immature Granulocyte Percent A 0.4 % (0-0.5); Lymphocytes Absolute Auto 3.02 K/mm3 (0.9-3.2); Lymphocytes Percent Auto 30.3 % (18.3-44.2); Mean Corpuscular HGB Conc 32.8 g/dl (32-36); Mean Corpuscular Hemoglobin 27.2 pg (26-34); Mean Corpuscular Volume 82.8 fl (80-100); Monocytes Absolute Auto 1.7 K/mm3 (0.1-0.6); Monocytes Percent Auto 17.3 % (2.6-8.5); Neutrophils Absolute Auto 4.9 K/mm3 (1.3-6.7); Neutrophils Percent Auto 49.5 % (45.5-73.1); Platelet Count Result 207 k/mm3 (150-375); Red Blood Count 5.63 M/mm3 (4.6-6.20); Red Cell Distribution Width 17.2 % (11.5-14.5)
--- NOTE | 2023-03-22 14:22 | ED.ARRPALP ---
HPI - Arrhythmia/Palpitations General Chief Complaint: Arrhythmia/Palpitations Stated Complaint: high hr Time Seen by Provider: 03/22/23 13:57 History of Present Illness HPI narrative: This is a 77-year-old male, with history of B-cell lymphoma, who presents emergency department complaining of an elevated heart rate. The patient states this morning, he was woken by his Apple Watch notifying him that his heart rate was elevated to the 130s. The patient denies chest pain, palpitations or shortness of breath. He states he mowed the lawn and then came here for evaluation. He denies recent change in medications, bleeding from any source, shortness of breath or loss of consciousness Related Data Home Medications Medication Instructions Recorded Confirmed finasteride 5 mg tablet 5 mg PO HS 01/18/21 03/22/23 tamsulosin 0.4 mg capsule 0.4 mg PO DAILY 01/18/21 03/22/23 multivitamin 1 tablet PO DAILY 10/03/21 03/22/23 mecobalamin (vitamin B12) 1,000 1,000 mcg PO DAILY 01/19/22 03/22/23 mcg chewable tablet (B12 Active) pantoprazole 40 mg tablet,delayed mg PO 03/22/23 release Allergies Allergy/AdvReac Type Severity Reaction Status Date / Time cortisone Allergy Unknown RED/SWOLLEN Verified 03/22/23 14:58 AT INJ SITE Sulfa (Sulfonamide Allergy Unknown Unknown- Verified 03/22/23 14:58 Antibiotics) A CHILD Review of Systems Review of Systems: CONSTITUTIONAL: Denies fever, chills, or sweats. CARDIOVASCULAR: Denies chest pain, palpitations, or edema. RESPIRATORY: Denies cough or dyspnea. GASTROINTESTINAL: Denies abdominal pain, nausea, vomiting, or diarrhea. GENITOURINARY: Denies dysuria or hematuria. SKIN: Denies rash or itching. MUSCULOSKELETAL: Denies back pain, joint pain, or myalgia. NEUROLOGIC: Denies headache, numbness, dizziness, or weakness. PSYCHIATRIC: Denies anxiety or depression. [facility] Past Medical History Medical History Acquired hypogammaglobulinemia Acute blood loss anemia B-cell lymphoma (~09/2021) BPH NOS w/o ur obs/LUTS Displaced fracture of carpal bone of left wrist dorsal avulsion fracture of the triquetrum Dyslipidemia Gastric ulcer due to nonsteroidal anti-inflammatory drug (NSAID) Incisional hernia without mention of obstruction or gangrene Nondisplaced fracture of left radial styloid process, initial encounter for closed fracture Peripheral neuropathy Vitamin D deficiency Surgical History Surgical History History of appendectomy 1999 History of colostomy reversal 1999 History of laparotomy x2 - 2002 and 2003 due to infected sutures History of partial surgical removal of colon 2000 - due to rupture History of repair of rotator cuff 1995 - Right 2017 - Left History of tonsillectomy 1951 Family History Family History Father Family history of genetic disorder Grandparent Family history of genetic disorder Social History Social History Years smoked: 50 Smoking status: Former smoker Tobacco type: pipe Second hand tobacco smoke exposure: No Smoking end date: 12/06/16 Alcohol intake: current Drinks per week: 2 Alcohol use details: BEER Substance use: never Substance use type: does not use Living arrangements: with family Occupation/Education: retired Gender identity (if verbalized by the patient): Male Spiritual care concerns: No Exam Narrative: GENERAL: Well-developed, well-nourished, and in no acute distress. HEAD: Normocephalic, atraumatic. EYES: PERRLA and EOMI. ENT: Nares clear, no rhinorrhea or epistaxis. Mucous membranes moist. Oropharynx without tonsillar hypertrophy exudate or other lesions. CHEST: Clear to auscultation. No respiratory distress. No wheezes rales or rhonchi HEART: Tachycardic wi
[2023-03-22 14:23] LABS: INR 1.1; Prothrombin Time 14.5 Seconds (11.1-14.7)
[2023-03-22 14:24] LABS: Partial Thromboplastin Time 29.6 SECONDS (22.3-36.8)
[2023-03-22] MEDS: dilTIAZem HCl INJ 25 MG/5 ML VIAL 10 MG IV PUSH ×2 (14:24→15:21)
[2023-03-22 14:25] LABS: Alanine Aminotransferase 34 U/L (6-50); Albumin Level 4.5 g/dL (3.5-5.1); Alkaline Phosphatase 75 U/L (38-126); Anion Gap 8 mmol/L (8-16); Aspartate Amino Transferase 64 U/L (17-59); Bilirubin,Total 0.6 mg/dL (0.2-1.3); Blood Urea Nitrogen 23 mg/dL (9-20); Calcium 9.2 mg/dL (8.4-10.2); Carbon Dioxide 25 mmol/L (22-30); Chloride 106 mmol/L (98-107); Estimated CRCL calculation 77 ml/min; Estimated Glomerular Filt Rate > 60; Glucose 120 mg/dL (65-110); Lipase 184 U/L (23-300); Potassium 4.1 mmol/L (3.4-5.0); Sodium 139 mmol/L (137-145)
[2023-03-22] MEDS: SODIUM CHLORIDE 0.9% IV 1,000 ML 999 ML IV CONT (14:25)
[2023-03-22 14:35] LABS: Troponin I 0.033 ng/mL (0.000-0.034)
[2023-03-22] MEDS: dilTIAZem 100 MG/100 ML 100 MG/100 ML BAG IV CONT (15:20)
[2023-03-22 17:14] LABS: Troponin I 0.021 ng/mL (0.000-0.034)
--- NOTE | 2023-03-22 19:52 | PC.NURSE ---
Patient currently boarded in the ED for IMU. Patient is not under my care. I will be completing the admission only.
--- NOTE | 2023-03-22 20:26 | PM.IMHP ---
H&P: HPI History of Present Illness Date/Time: 03/22/23 20:26 Chief Complaint: ARRHYTHMIA Narrative: THIS IS A 77-YEAR-OLD MALE WITH PAST MEDICAL HISTORY SIGNIFICANT FOR B-CELL LYMPHOMA, UNDERGOING CHEMOTHERAPY, PATIENT COMES TO THE EMERGENCY ROOM AFTER HIS APPLE WATCH INFORMED HIM ABOUT HAVING ABNORMAL HEART RATE WAS ADVISED TO COME TO THE EMERGENCY ROOM BY HIS ONCOLOGIST. PATIENT REPORT THAT HE HAS BEEN IN HIS USUAL STATE OF HEALTH DENIES ANY CHEST PAIN, SHORTNESS OF BREATH, PALPITATIONS, LIGHTHEADEDNESS, DIZZINESS, SYNCOPE OR NEAR-SYNCOPE, NO LEG SWELLING, NO PND, NO ORTHOPNEA. PATIENT NOTICED THE IS ON HIS APPLE WATCH THE DAY BEFORE AND THE DAY HE PRESENTED TO THE EMERGENCY ROOM HE MOWED THE LAWN AND FELT HIS USUAL. UPON ARRIVAL TO EMERGENCY ROOM PATIENT WAS FOUND TO HAVE ATRIAL FIBRILLATION WITH RAPID VENTRICULAR RESPONSE AND WAS STARTED ON DILTIAZEM DRIP. PATIENT ADMITTED FOR FURTHER EVALUATION MANAGEMENT AND TREATMENT. EXAMINATION: XR chest 2V DATE: 03/22/2023 14:46 INDICATION: Palpitations TECHNIQUE: PA and lateral views of the chest are obtained. COMPARISON: 10/18/2021 FINDINGS: The lungs are free of acute opacities. No pleural effusion or pneumothorax. The cardiomediastinal silhouette is normal. There is mild thoracic spondylosis. A right internal jugular Port-A-Cath ends with its tip in the distal superior vena cava. IMPRESSION: 1. No acute cardiopulmonary abnormality. EXAMINATION: CTA chest PE protocol DATE: 03/22/2023 16:39 CDT INDICATION: Tachycardia TECHNIQUE: Computed tomographic angiography (CTA) of the chest was performed with 100 mL Omnipaque-350 intravenous contrast. The dose-length product was 938.44 mGy-cm. Maximum intensity projection 3D-reconstructions of the aorta and other arteries were constructed by the technologist on a separate workstation. COMPARISON: chest x-ray dated 03/22/2023. FINDINGS: There is axillary, mediastinal and bilateral hilar lymphadenopathy, suspicious for lymphoma versus metastatic disease. Trace pleural effusions. Heart size normal. Study is technically adequate without evidence for pulmonary embolism. No evidence for aortic aneurysm or dissection. Trace pleural effusions. There are gallstones. Left renal cysts. There is interlobular septal thickening of the lower lobes with subpleural bands, suspicious for chronic interstitial lung disease. There are areas of tree-in-bud nodular configuration, most likely infectious/inflammatory. There is lower lobe bronchiectasis. No pneumothorax. IMPRESSION: 1. No evidence for pulmonary embolism. 2:? Extensive thoracic lymphadenopathy, suspicious for lymphoma or metastatic disease. Correlate for history of malignancy. 3: Lower lobe interstitial lung disease, likely chronic. Areas of tree-in-bud configuration are most likely infectious/inflammatory. 4: Cholelithiasis. Review of Systems Review of Systems: ABNORMAL HEART RATE PER APPLE DEVICE Constitutional: Constitutional: Denies chills, Denies fatigue, Denies fever(s), Denies malaise and Denies weakness Eyes: Eyes: Denies change in vision ENT: Denies dysphagia, Denies vertigo, Denies dizziness and Denies odynophagia Cardiovascular: Cardiovascular: Reports other ( ABNORMAL HEART RATE DETECTED BY ELECTRONIC DEVICE) Respiratory: Respiratory: Denies chest congestion, Denies cough, Denies excessive phlegm production, Denies pain on inspiration and Denies dyspnea Gastrointestinal: Gastrointestinal: Denies abdominal pain, Denies dyspepsia, Denies heartburn, Denies diarrhea, Denies nausea and Denies vomiting Genitourinary: Genitourinary: Denies dysuria Musculoskeletal: Musculoskeletal: Denies myalgias and Denies arthralgias Integumentary/Breasts: Skin/Breast: Denies rash Neurologic: Denies vertigo, Denies dizziness, Denies focal weakness and Denies Sensory deficit (Neuro) Psychiatric: Psychiatric: Reports no additional psychiatric complaints and Reports as per HPI Endocr
[2023-03-22 21:09] LABS: Troponin I 0.036 ng/mL (0.000-0.034)
[2023-03-22] MEDS: ACETAMINOPHEN 500 MG TABLET 1000 MG PO (23:35)
[2023-03-23] VITALS (22 sets, daily range): BP systolic 92–134; BP diastolic 53–81; PULSE 69–140; RESP 16–20; TEMP 36.2–36.7; O2SAT 94–99; BMI 32.2
--- NOTE | 2023-03-23 | ECHO_ITS ---
Patient Info Name: Wilfrido Raymond Age: 77 years : 1945 Gender: Male Ht: 72 in Wt: 230 lbs BSA: 2.33 m2 HR: 95 bpm BP: 122 / 64 mmHg Heart Rhythm: Sinus Rhythm Technical Quality: Good Exam Date: 03/23/2023 10:33 AM Exam Location: [facility] Pulmonary Patient Status: Outpatient Admit Date: 03/22/2023 Staff Ordering Physician: Eduarda Singh MD Attending Provider: Don Soria MD Referring Physician: Samantha JEROME; Exam Type: CA echo doppler color flow Study Info Indications - A-fib Complete two-dimensional, color flow and Doppler transthoracic echocardiogram is performed. Summary 1. Complete two-dimensional, color flow and Doppler transthoracic echocardiogram is performed. 2. Left ventricular chamber dimension is normal. 3. Left ventricular systolic function is normal, estimated at 60-65%. 4. There is mildly increased left ventricular wall thickness. 5. The left ventricular diastolic function is indeterminate. 6. Left atrial chamber dimension is mildly enlarged. 7. There is mild tricuspid valve regurgitation. 8. The aortic root size at the sinus of Valsalva is mildly dilated. Left Ventricle Left ventricular chamber dimension is normal. Left ventricular systolic function is normal, estimated at 60-65%. There is mildly increased left ventricular wall thickness. The left ventricular diastolic function is indeterminate. Right Ventricle Right ventricular chamber dimension is normal. Right ventricular systolic function is normal. Left Atria Left atrial chamber dimension is mildly enlarged. Right Atria Right atrial chamber dimension is normal. Atrial Septum Intact interatrial septum visualized by color flow imaging. Aortic Valve The aortic valve is trileaflet. There is mild aortic valve sclerosis. There is no aortic valve stenosis. There is trace aortic valve regurgitation. Pulmonic Valve The pulmonic valve is normal. There is no pulmonic valve stenosis. There is trace pulmonic regurgitation. Mitral Valve The mitral valve has normal leaflets. There is no mitral valve stenosis. There is trace mitral valve regurgitation. Tricuspid Valve The tricuspid valve leaflets are normal. There is no significant tricuspid valve stenosis. There is mild tricuspid valve regurgitation. No pulmonary hypertension, estimated pulmonary arterial systolic pressure is 35 mmHg. Pericardium/Pleural The pericardium appears normal. There is no pericardial effusion. Inferior Vena Cava Normal inferior vena cava with >50% collapse upon inspiration consistent with normal right atrial pressure, 10 mmHg. Aorta The aortic root size at the sinus of Valsalva is mildly dilated. Left Ventricular Outflow Tract Name Value Normal LVOT 2D LVOT Diameter 2.1 cm LVOT Doppler LVOT Peak Gradient 4 mmHg LVOT Mean Gradient 3 mmHg LVOT VTI 20 cm LVOT VTI/AV VTI Ratio 0.7 LVOT Stroke Volume 73 ml LVOT CO 6.0 l/min LVOT CI 2.6 l/min/m2 Pulmonic Valve
--- NOTE | 2023-03-23 02:21 | ADMGEN ---
This patient, Wilfrido Raymond, was admitted to [facility]. Patient/family oriented to hospital policies and general routines including ID bracelet, bed and alarms, visiting hours, pain management, procedures, bathroom and other care routines, personal items, smoking policy, room service/diet, and visiting hours. Information on how to activate the Rapid Response Team has been discussed. Patient/Family are encouraged to report perceived risks to care and to ask questions if they do not understand what they are told or what they should do.
[2023-03-23] MEDS: ENOXAPARIN 100 MG/ML SYRINGE SUB-Q (04:20)
[2023-03-23 05:28] LABS: Basophils Absolute Auto 0.1 K/mm3 (0.0-0.1); Eosinophils Absolute Auto 0.2 K/mm3 (0-0.3); Eosinophils Percent Auto 2.5 % (0-4.4); Hematocrit 44.6 % (42.0-52.0); Hemoglobin 14.5 g/dL (14.0-18.0); Immature Granulocyte Absolute 0.02 K/mm3 (0.00-0.031); Immature Granulocyte Percent A 0.2 % (0-0.5); Lymphocytes Absolute Auto 2.59 K/mm3 (0.9-3.2); Lymphocytes Percent Auto 32.3 % (18.3-44.2); Mean Corpuscular HGB Conc 32.5 g/dl (32-36); Mean Corpuscular Hemoglobin 27.6 pg (26-34); Mean Platelet Volume 11.4 fl (7.4-10.4); Monocytes Absolute Auto 1.6 K/mm3 (0.1-0.6); Monocytes Percent Auto 20.1 % (2.6-8.5); Neutrophils Absolute Auto 3.5 K/mm3 (1.3-6.7); Neutrophils Percent Auto 43.9 % (45.5-73.1); Platelet Count Result 174 k/mm3 (150-375); Red Blood Count 5.25 M/mm3 (4.6-6.20); Red Cell Distribution Width 17.3 % (11.5-14.5)
[2023-03-23 05:43] LABS: Anion Gap 8 mmol/L (8-16); Blood Urea Nitrogen 20 mg/dL (9-20); Calcium 8.7 mg/dL (8.4-10.2); Carbon Dioxide 24 mmol/L (22-30); Chloride 107 mmol/L (98-107); Estimated CRCL calculation 86 ml/min; Estimated Glomerular Filt Rate > 60; Glucose 119 mg/dL (65-110); Potassium 4.2 mmol/L (3.4-5.0); Sodium 139 mmol/L (137-145)
[2023-03-23] MEDS: MULTIVITAMINS THERAPEUTIC TAB (*BKC) 1 TABLET PO (09:06)
[2023-03-23] MEDS: CYANOCOBALAMIN 1,000 MCG TABLET 1000 MCG PO (09:06)
[2023-03-23] MEDS: PANTOPRAZOLE 40 MG TABLET PO (09:06)
[2023-03-23] MEDS: TAMSULOSIN HCL 0.4 MG CAPSULE PO (09:06)
--- NOTE | 2023-03-23 10:54 | PM.IMPN ---
Progress Note: A&P Assessment and Plan (1) Atrial flutter with rapid ventricular response: Code(s): I48.92 - Unspecified atrial flutter Status: Acute Assessment and Plan: ADMIT TO IMU ON DILTIAZEM DRIP ECHOCARDIOGRAM (2) Acquired hypogammaglobulinemia: Code(s): D80.1 - Nonfamilial hypogammaglobulinemia Status: Acute Assessment and Plan: CONTINUE TO MONITOR (3) B-cell lymphoma: Onset Date: ~09/2021 Code(s): C85.10 - Unspecified B-cell lymphoma, unspecified site Status: Acute Assessment and Plan: HAS NOT ACHIEVED REMISSION FOLLOW-UP IN OUTPATIENT SETTING Subjective Date/time seen: 03/23/23 10:54 Interval history: Asymptomatic Review of Systems Review of Systems: Negative other than HPI Exam Const: General: comfortable, no acute distress, well developed, alert, awake, average body habitus and other ( WELL-APPEARING) Nutritional Appearance: average body habitus Orientation/consciousness: patient oriented x3 HENMT: Head: normal to inspection, normocephalic and atraumatic Ears: hearing grossly normal bilaterally Face/Nose/Sinus: normal facial exam Face and sinus: normal facial exam Eyes: General: appearance normal, both eyes and all related structures Pupils: Equal, round and reactive pupils present EOM: EOMs intact bilaterally Neck: Neck: full ROM, no lymphadenopathy and no JVD Thyroid: thyroid normal Lymphatic: no lymphadenopathy noted Resp: Effort & Inspection: normal respiratory effort and able to speak in complete sentences Auscultation: clear to auscultation bilaterally Cardio: Jugular venous distension: no JVD Rate: regular rate Rhythm: regular rhythm Heart sounds: S1 normal heart sound present and S2 normal heart sound present GI: GI Palp: Yes Soft to palpation and Yes No hepatosplenomegaly present : General: Yes deferred Skin: Rashes: no rashes Wounds: no wounds Neuro: General: patient oriented x3 and CN's II-XI intact bilaterally Cranial nerves: Yes CN's II-XII intact bilaterally and Yes Equal, round and reactive pupils present Cognition (Neuro): normal cognition Speech: normal speech Gait exam (Neuro): Unable to assess gait Motor exam (neuro): 5/5 motor strength present throughout Extrem: General: normal to inspection, full ROM, no joint enlargement and no pedal edema Objective Data Vital Signs Vital Signs: Vital Signs - 24 hr 03/22/23 13:38 03/22/23 14:03 03/22/23 14:28 Temperature 97.8 F Pulse Rate 152 H 144 H 142 H Respiratory Rate 20 18 19 Blood Pressure 127/84 123/88 125/73 Pulse Oximetry 95 98 97 Oxygen Delivery Room Air 03/22/23 15:20 03/22/23 15:00 03/22/23 15:30 Temperature Pulse Rate 140 H 139 H 140 H Respiratory Rate 18 19 Blood Pressure 123/98 H 119/91 H 131/90 Pulse Oximetry 97 97 Oxygen Delivery 03/22/23 19:23 03/22/23 19:30 03/22/23 20:41 Temperature Pulse Rate 138 H 138 H 105 H Respiratory Rate 16 16 Blood Pressure 125/99 H 125/99 H 127/73 Pulse Oximetry 97 97 Oxygen Delivery 03/22/23 21:20 03/22/23 19:30 03/22/23 21:24 Temperature Pulse Rate 99 138 H 99 Respiratory Rate 16 Blood Pressure 133/67 Pulse Oximetry 97 Oxygen Delivery 03/22/23 23:37 03/23/23 00:00 03/23/23 01:00 Temperature Pulse Rate 117 H 99 110 H Respiratory Rate 16 17 16 Blood Pressure 100/76 126/81 128/71 Pulse Oximetry 98 96 97 Oxygen Delivery 03/23/23 01:59 03/23/23 02:06 03/23/23 02:35 Temperature 97.1 F L Pulse Rate 104 H 104 H 140 H Respiratory Rate 16 16 16 Blood Pressure 107/71 119/73 92/53 L Pulse Oximetry 96 97 96 Oxygen Delivery 03/23/23 04:18 03/23/23 02:00 03/23/23 04:00 Temperature 97.8 F Pulse Rate 97 137 H 103 H Respiratory Rate 16 Blood Pressure 118/57 L Pulse Oximetry 95 Oxygen Delivery 03/23/23 06:00 03/23/23 08:00 Temperature 98.0 F Pulse Rate 80 95 Respiratory Rate 18 Blood Pressure 1
[2023-03-23] MEDS: dilTIAZem 100 MG/100 ML 100 MG/100 ML BAG 10 MG IV CONT (12:39)
--- NOTE | 2023-03-23 12:49 | PM.CNCAR ---
Assessment and Plan Assessment and plan (1) Atrial flutter with rapid ventricular response: Code(s): I48.92 - Unspecified atrial flutter Status: Acute Assessment and Plan: His chads Vasc score of 3 given age and diabetes. He has responded well to the diltiazem drip despite being in atrial flutter. I will start him on Xarelto 20 mg daily. Will discontinue his enoxaparin. 2D echocardiogram Doppler be ordered and reviewed. TSH and free T4 level be ordered and reviewed. ART cardioversion to be performed on Saturday. Wean diltiazem drip down as on his heart rate is reasonably controlled less than 110 beats per minute. (2) B-cell lymphoma: Onset Date: ~09/2021 Code(s): C85.10 - Unspecified B-cell lymphoma, unspecified site Status: Acute Assessment and Plan: Followed at [facility] (3) History of GI bleed: Code(s): Z87.19 - Personal history of other diseases of the digestive system Status: Acute Assessment and Plan: History of ulcer related to NSAID use. (4) Pre-diabetes: Code(s): R73.03 - Prediabetes Status: Acute Assessment and Plan: Longstanding history. Dietary control History of Present Illness History of Present Illness Consult date/time: 03/23/23 12:49 Requesting physician: Viral Samayoa MD Consult reason: Other (Atrial flutter) Reason For Visit: arial flutter Narrative: Date of service 03/23/2023 Reason consultation: Atrial flutter Requesting provider: Dr. Samayoa History patient is a 77-year-old male history of B-cell lymphoma undergoing therapy at [facility]. He has an [employer] watch and noticed that on which is 2 days ago that he started to develop an elevated heart rate. He notices heart rate go up and down but consistently was elevated. He called his oncologist who instructed him to go to the ER for an EKG. He was found to be in atrial flutter with rapid ventricular response. He was started on diltiazem drip his heart rate has been better. The he was admitted for further workup and management. He otherwise has been feeling fine and denies any chest pain, shortness breath, syncope, presyncope, paroxysmal nocturnal dyspnea, orthopnea, edema palpitations. Review of Systems Review of Systems: All systems reviewed & are unremarkable except as noted in HPI and below Constitutional: Constitutional: Denies body ache(s) Eyes: Eyes: Denies blurry vision ENT: Reports Normal hearing present Cardiovascular: Cardiovascular: Denies chest pain and Denies palpitations Respiratory: Respiratory: Denies chest congestion and Denies hemoptysis Gastrointestinal: Gastrointestinal: Denies abdominal pain Genitourinary: Genitourinary: Denies hematuria Musculoskeletal: Musculoskeletal: Denies back pain Integumentary/Breasts: Skin/Breast: Denies dry skin Neurologic: Denies Abnormal speech present Psychiatric: Psychiatric: Denies anxiety and Denies behavioral changes Endocrine: Endocrine: Reports excessive sweating Hematologic/Lymphatic: Hematologic/Lymphatic: Denies easy bleeding Allergic/Immunologic: Allergic/Immunologic: Denies GI upset with certain foods PMFSH Past Medical History Medical History Acquired hypogammaglobulinemia Acute blood loss anemia B-cell lymphoma (~09/2021) BPH NOS w/o ur obs/LUTS Displaced fracture of carpal bone of left wrist dorsal avulsion fracture of the triquetrum Dyslipidemia Gastric ulcer due to nonsteroidal anti-inflammatory drug (NSAID) Incisional hernia without mention of obstruction or gangrene Nondisplaced fracture of left radial styloid process, initial encounter for closed fracture Peripheral neuropathy Vitamin D deficiency Surgical History Surgical History History of appendectomy 1999 History of colostomy reversal 1999 History of laparotomy x2 - 2002 and 2003 due
[2023-03-23] MEDS: RIVAROXABAN 20 MG TABLET PO (17:03)
[2023-03-23] MEDS: CENTRAL LINE FLUSH 10 ML IV PUSH (21:18)
[2023-03-23] MEDS: SIMVASTATIN 10 MG TABLET PO (21:18)
[2023-03-23] MEDS: FINASTERIDE 5 MG TABLET PO (21:18)
[2023-03-24] VITALS (18 sets, daily range): BP systolic 108–147; BP diastolic 62–71; PULSE 68–100; RESP 16–22; TEMP 36.1–36.8; O2SAT 96–100
[2023-03-24] MEDS: dilTIAZem 100 MG/100 ML 100 MG/100 ML BAG 10 MG IV CONT (01:25)
[2023-03-24] MEDS: CENTRAL LINE FLUSH 10 ML IV PUSH ×3 (05:53→23:54)
--- NOTE | 2023-03-24 08:50 | PM.PNCARD ---
Progress Note: A&P Assessment and Plan (1) Atrial flutter with rapid ventricular response: Code(s): I48.92 - Unspecified atrial flutter Status: Acute Assessment and Plan: His chads Vasc score of 3 given age and diabetes. He has responded well to the diltiazem drip despite being in atrial flutter. On Xarelto for anticoagulation. Heart rate is controlled. Will reduce is diltiazem drip down to 5 milligrams/hour IV. ART cardioversion tomorrow. NPO after midnight (2) B-cell lymphoma: Onset Date: ~09/2021 Code(s): C85.10 - Unspecified B-cell lymphoma, unspecified site Status: Acute Assessment and Plan: Followed at [facility] (3) History of GI bleed: Code(s): Z87.19 - Personal history of other diseases of the digestive system Status: Acute Assessment and Plan: History of ulcer related to NSAID use. (4) Pre-diabetes: Code(s): R73.03 - Prediabetes Status: Acute Assessment and Plan: Longstanding history. Dietary control Subjective Date/time seen: 03/24/23 08:50 Interval history: 77-year-old admitted for atrial flutter. Date of service 03/24/2023: Remains atrial flutter but heart rate is well controlled. No chest pain, shortness of breath. Review of Systems Review of Systems: All systems reviewed & are unremarkable except as noted in HPI and below Constitutional: Constitutional: Denies body ache(s) and Reports excessive sweating Eyes: Eyes: Denies blurry vision ENT: Reports Normal hearing present Cardiovascular: Cardiovascular: Denies chest pain and Denies palpitations Respiratory: Respiratory: Denies chest congestion and Denies hemoptysis Gastrointestinal: Gastrointestinal: Denies abdominal pain Genitourinary: Genitourinary: Denies hematuria Musculoskeletal: Musculoskeletal: Denies back pain Integumentary/Breasts: Skin/Breast: Denies dry skin Neurologic: Reports Normal hearing present, Denies Abnormal speech present and Denies behavioral changes Psychiatric: Psychiatric: Denies anxiety and Denies behavioral changes Endocrine: Endocrine: Reports excessive sweating and Denies palpitations Hematologic/Lymphatic: Hematologic/Lymphatic: Denies easy bleeding Allergic/Immunologic: Allergic/Immunologic: Denies GI upset with certain foods Exam Narrative: Awake alert oriented and appears stated age Const: General: comfortable and no acute distress HENMT: Face/Nose/Sinus: Normal nares present Mouth: Yes moist mucous membranes Eyes: General: appearance normal, both eyes and all related structures Sclera: sclerae normal Neck: Neck: supple and no JVD Carotids: no bruits Chest: Other: No reproducible chest wall pain to palpation Resp: Effort & Inspection: normal respiratory effort Auscultation: clear to auscultation bilaterally Cardio: Rate: regular rate Rhythm: abnormal rhythm regularly irregular Heart sounds: no murmurs GI: Inspection: non-distended Auscultation: normal bowel sounds Skin: General skin exam: normal color Neuro: General: gait normal Cranial nerves: Yes Normal hearing present Speech: normal speech and No Abnormal speech present Extrem: General: normal to inspection Psych: Mental Status: mental status grossly normal Affect: normal affect Objective Data Vital Signs Vital Signs: Vital Signs - 24 hr 03/23/23 11:59 03/23/23 12:39 03/23/23 10:00 Temperature 36.4 C L Pulse Rate 84 87 96 Respiratory Rate 17 Blood Pressure 116/63 Pulse Oximetry 97 Oxygen Delivery 03/23/23 12:00 03/23/23 14:00 03/23/23 15:29 Temperature 36.3 C L Pulse Rate 89 75 87 Respiratory Rate 20 Blood Pressure 134/58 L Pulse Oximetry 98 Oxygen Delivery 03/23/23 16:00 03/23/23 18:00 03/23/23 20:10 Temperature 36.4 C Pulse Rate 101 H 99 94 Respiratory Rate 16 Blood Pressure 122/56 L Pulse Oximetry 94 Oxygen Delivery 03/23/23 20:00 03/23/23 22:00 0
[2023-03-24] MEDS: TAMSULOSIN HCL 0.4 MG CAPSULE PO (09:29)
[2023-03-24] MEDS: PANTOPRAZOLE 40 MG TABLET PO (09:29)
[2023-03-24] MEDS: CYANOCOBALAMIN 1,000 MCG TABLET 1000 MCG PO (09:30)
[2023-03-24] MEDS: MULTIVITAMINS THERAPEUTIC TAB (*BKC) 1 TABLET PO (09:30)
[2023-03-24] MEDS: RIVAROXABAN 20 MG TABLET PO (16:00)
--- NOTE | 2023-03-24 16:23 | PM.IMPN ---
Progress Note: A&P Assessment and Plan (1) Atrial flutter with rapid ventricular response: Code(s): I48.92 - Unspecified atrial flutter Status: Acute Assessment and Plan: On diltiazem drip presently Echocardiogram Pt to have electrical cardioversion tomorrow Under cardiology (2) Acquired hypogammaglobulinemia: Code(s): D80.1 - Nonfamilial hypogammaglobulinemia Status: Acute Assessment and Plan: Pt is on remission (3) B-cell lymphoma: Onset Date: ~09/2021 Code(s): C85.10 - Unspecified B-cell lymphoma, unspecified site Status: Acute Assessment and Plan: Pt is on remission Subjective Date/time seen: 03/24/23 16:23 Interval history: 77-YEAR-OLD MALE WITH PAST MEDICAL HISTORY SIGNIFICANT FOR B-CELL LYMPHOMA, UNDERGOING CHEMOTHERAPY, PATIENT COMES TO THE EMERGENCY ROOM AFTER HIS APPLE WATCH INFORMED HIM ABOUT HAVING ABNORMAL HEART RATE WAS ADVISED TO COME TO THE EMERGENCY ROOM BY? HIS ONCOLOGIST. PATIENT? REPORT THAT HE HAS BEEN IN HIS USUAL STATE OF HEALTH DENIES ANY CHEST PAIN, SHORTNESS OF BREATH, PALPITATIONS, LIGHTHEADEDNESS, DIZZINESS, SYNCOPE OR NEAR-SYNCOPE, NO LEG SWELLING, NO PND, NO ORTHOPNEA. PATIENT NOTICED THE IS ON HIS APPLE WATCH THE DAY BEFORE AND THE DAY HE PRESENTED TO THE EMERGENCY ROOM HE MOWED THE LAWN AND FELT HIS USUAL. Pt is having af with rvr Pt is on diltiazem drip Pt will have electrical cardioversion karen under cardiology Review of Systems Review of Systems: Negative other than HPI Exam Const: General: comfortable, no acute distress, well developed, alert, awake, average body habitus and other ( WELL-APPEARING) Nutritional Appearance: average body habitus Orientation/consciousness: patient oriented x3 Resp: Effort & Inspection: normal respiratory effort and able to speak in complete sentences Auscultation: clear to auscultation bilaterally Cardio: Jugular venous distension: no JVD Rate: regular rate Rhythm: regular rhythm Heart sounds: S1 normal heart sound present and S2 normal heart sound present Neuro: General: patient oriented x3, CN's II-XI intact bilaterally and Unable to assess gait Cranial nerves: Yes CN's II-XII intact bilaterally and Yes Equal, round and reactive pupils present Cognition (Neuro): normal cognition Speech: normal speech Gait exam (Neuro): Unable to assess gait Motor exam (neuro): 5/5 motor strength present throughout Sensory Exam: No Sensory deficit (Neuro) Extrem: General: normal to inspection, full ROM, no joint enlargement and no pedal edema Objective Data Vital Signs Vital Signs: Vital Signs - 24 hr 03/23/23 18:00 03/23/23 20:10 03/23/23 20:00 Temperature 36.4 C Pulse Rate 99 94 71 Respiratory Rate 16 Blood Pressure 122/56 L Pulse Oximetry 94 Oxygen Delivery 03/23/23 22:00 03/23/23 20:00 03/23/23 23:57 Temperature 36.6 C Pulse Rate 69 94 69 Respiratory Rate 16 16 Blood Pressure 110/70 Pulse Oximetry 94 99 Oxygen Delivery Room Air 03/24/23 00:00 03/24/23 01:25 03/24/23 00:00 Temperature Pulse Rate 69 75 69 Respiratory Rate 16 Blood Pressure 110/70 Pulse Oximetry 99 Oxygen Delivery Room Air 03/24/23 01:40 03/24/23 04:00 03/24/23 04:00 Temperature 36.1 C L Pulse Rate 69 69 69 Respiratory Rate 16 Blood Pressure 108/62 Pulse Oximetry 98 Oxygen Delivery 03/24/23 04:00 03/24/23 05:08 03/24/23 08:05 Temperature 36.2 C L Pulse Rate 69 69 71 Respiratory Rate 16 18 Blood Pressure 122/67 Pulse Oximetry 98 97 Oxygen Delivery Room Air 03/24/23 08:00 03/24/23 10:00 03/24/23 08:00 Temperature Pulse Rate 71 72 72 Respiratory Rate 18 Blood Pressure Pulse Oximetry 97 Oxygen Delivery Room Air 03/24/23 11:36 03/24/23 12:00 03/24/23 14:00 Temperature 36.6 C Pulse Rate 72 72 75 Respiratory Rate 22 H Blood Pressure 131/63 Pulse Oximetry 98 Oxygen Delivery 03/24/23 12:
[2023-03-24] MEDS: FINASTERIDE 5 MG TABLET PO (20:34)
[2023-03-24] MEDS: SIMVASTATIN 10 MG TABLET PO ×2 (20:34)
[2023-03-24] MEDS: ACETAMINOPHEN 325 MG TABLET 650 MG PO (20:51)
[2023-03-25] VITALS (18 sets, daily range): BP systolic 104–145; BP diastolic 61–86; PULSE 67–81; RESP 11–20; TEMP 35.8–36.3; O2SAT 95–100
--- NOTE | 2023-03-25 | ECG_ITS ---
Measurements Intervals [place] Rate: 78 P: 48 NC: 188 QRS: 20 QRSD: 101 T: 34 QT: 374 QTc: 427 Interpretive Statements SINUS RHYTHM NORMAL ECG COMPARED TO ECG 03/22/2023 13:42:16 SINUS RHYTHM NOW PRESENT Electronically Signed On 03-25-2023 12:51:36 CDT by Nick Garcia D.O.
[2023-03-25] MEDS: CENTRAL LINE FLUSH 10 ML IV PUSH (06:29)
--- NOTE | 2023-03-25 11:08 | WPDMODSED ---
Moderate Sedation Note-Pt Data Patient Data Diagnosis: Atrial flutter Present Complaint: Atrial flutter Procedure to be performed/Plan: Antonio guided cardioversion Moderate sedation Agitated saline study Allergies Allergy/AdvReac Type Severity Reaction Status Date / Time cortisone Allergy Unknown RED/SWOLLEN Verified 03/22/23 14:58 AT INJ SITE Sulfa (Sulfonamide Allergy Unknown Unknown- Verified 03/22/23 14:58 Antibiotics) A CHILD Home Medications Medication Instructions Recorded Confirmed Type finasteride 5 mg tablet 5 mg PO HS 01/18/21 03/22/23 History tamsulosin 0.4 mg capsule 0.4 mg PO DAILY 01/18/21 03/22/23 History simvastatin 10 mg tablet 10 mg PO QHS #90 tabs 09/05/21 03/22/23 Rx multivitamin 1 tablet PO DAILY 10/03/21 03/22/23 History mecobalamin (vitamin B12) 1,000 1,000 mcg PO DAILY 01/19/22 03/22/23 History mcg chewable tablet (B12 Active) pantoprazole 40 mg tablet,delayed 40 mg PO DAILY 03/22/23 03/23/23 History release Current Medications: Active Medications Acetaminophen (Acetaminophen 325 Mg Tablet) 650 mg PO Q6H PRN PRN Reason: Mild Pain (1-3) or Fever Last Admin: 03/24/23 20:51 Dose: 650 mg Cyanocobalamin (Cyanocobalamin 1,000 Mcg Tablet) 1,000 mcg PO QAM TOBIAS Last Admin: 03/24/23 09:30 Dose: 1,000 mcg Finasteride (Finasteride 5 Mg Tablet) [address] [facility] Last Admin: 03/24/23 20:34 Dose: 5 mg Heparin Sodium (Beef Lung) (Heparin Flush 50 Units/5 Ml Syringe) 50 units IV PUSH PRN PRN PRN Reason: after blood draws Last Admin: 03/24/23 15:57 Dose: 50 units Heparin Sodium (Beef Lung) (Heparin Flush 50 Units/5 Ml Syringe) 50 units IV PUSH PRN PRN PRN Reason: after intermittent infusion Heparin Sodium (Beef Lung) (Heparin Flush 50 Units/5 Ml Syringe) 50 units IV PUSH QAM TOBIAS Last Admin: 03/24/23 11:35 Dose: Not Given Heparin Sodium (Porcine) (Heparin Sodium Lock Flush 500 Units/5 Ml Syringe) 500 units IV PUSH PRN PRN PRN Reason: see comments below Multivitamins Therapeutic (Multivitamins Therapeutic Tab (*Bkc)) 1 tablet PO DAILY [facility] Last Admin: 03/24/23 09:30 Dose: 1 tablet Pantoprazole Sodium (Pantoprazole 40 Mg Tablet) 40 mg PO DAILY [facility] Last Admin: 03/24/23 09:29 Dose: 40 mg Perflutren Lipid Microsphere (Perflutren Lipid Microspheres 1.5 Ml Vial Diluted To 10 Ml Total Volume) 0 ml IV PUSH ONCE PRN; Protocol PRN Reason: adequate visualization Stop: 03/26/23 02:56 Rivaroxaban (Rivaroxaban 20 Mg Tablet) 20 mg PO DAILY@1700 [facility] Last Admin: 03/24/23 16:00 Dose: 20 mg Simvastatin (Simvastatin 10 Mg Tablet) 10 mg PO HS [facility] Last Admin: 03/24/23 20:34 Dose: 10 mg Simvastatin (Simvastatin 10 Mg Tablet) 10 mg PO QHS [facility] Last Admin: 03/24/23 20:34 Dose: 10 mg Sodium Chloride (Central Line Flush) 10 ml IV PUSH Q8HR [facility] Last Admin: 03/25/23 06:29 Dose: 10 ml Tamsulosin HCl (Tamsulosin Hcl 0.4 Mg Capsule) 0.4 mg PO DAILY [facility] Last Admin: 03/24/23 09:29 Dose: 0.4 mg Sedation/Anesthesia: No previous sedation/anesthesia problems (including family history). [facility] Past Medical History Medical History Acquired hypogammaglobulinemia Acute blood loss anemia B-cell lymphoma (~09/2021) BPH NOS w/o ur obs/LUTS Displaced fracture of carpal bone of left wrist dorsal avulsion fracture of the triquetrum Dyslipidemia Gastric ulcer due to nonsteroidal anti-inflammatory drug (NSAID) Incisional hernia without mention of obstruction or gangrene Nondisplaced fracture of left radial styloid process, initial encounter for closed fracture Peripheral neuropathy Vitamin D deficiency Surgical History Surgical History History of appendectomy 1999 History of colostomy reversal 2000 History of laparotomy x2 - 2002 and 2003 due to infected sutures History of partial surgical removal of colon 1999 - due to rupture History of repa
--- NOTE | 2023-03-25 11:47 | WPDTECDV ---
ART with Cardioversion Date of procedure: 03/25/23 Procedure Type: 1. multiplanar transesophageal echocardiogram with color flow and pulse wave Doppler 2. Agitated saline study 3. Electrical cardioversion 4. Moderate sedation Diagnosis: Atrial flutter Indications: Atrial flutter Description of Procedure: After discussing the risks, benefits and alternatives of the procedure patient agreeable via verbal and written informed consent. Risks discussed included esophageal rupture perforation, bleeding, pain, information, need for surgery, , shocking into more problematic heart rhythm, skin irritation burn, adverse reaction to anesthesia. After establishing continues telemetry monitoring, pulse oxygenation and serial blood pressure assessments and after time-out was taken, procedure was started. Procedure start time 11:23 a.m. Procedure stop time 11:37 a.m. Complications: None Blood loss: None Hurricaine spray the hypopharynx x2 for topical anesthetic Moderate sedation: A total of 4 mg of Versed and 100 mcg of fentanyl given in divided dosages Medications were administered patient was monitored by Marianela Myers RN Sedation: As above Findings: ART: Normal left ventricular size and function ejection fraction 55-60%. Mild LVH. Normal right ventricular size and function. Mild left atrial enlargement. Normal right atrial size. Aortic root is normal in size measuring 3.4 cm. No pericardial effusion. Atrial septum his stent hypermobile. Positive agitated saline study consistent with small PFO. Left atrial appendage is without mass or thrombus with pulse-wave velocities to 75-100 centimeters/second. Normal mitral valve with mild mitral regurgitation. Trileaflet aortic valve with trivial aortic insufficiency. Mild aortic valve sclerosis. Normal tricuspid valve with mild tricuspid regurgitation. Normal pulmonic valve with trivial pulmonic insufficiency. Electrical cardioversion: After confirming atrial flutter, 125 joules of biphasic synchronized energy was used to restore sinus rhythm from atrial flutter. Conclusion: 1. Successful inpatient ART guided cardioversion using 125 joules of biphasic synchronized energy 2. Normal left ventricular size and function ejection fraction 55-60% mild LVH. Mild left atrial enlargement. 3. Mild mitral regurgitation 4. Positive agitated saline study consistent with small PFO 5. Moderate sedation
[2023-03-25] MEDS: MULTIVITAMINS THERAPEUTIC TAB (*BKC) 1 TABLET PO (13:13)
[2023-03-25] MEDS: CYANOCOBALAMIN 1,000 MCG TABLET 1000 MCG PO (13:13)
[2023-03-25] MEDS: PANTOPRAZOLE 40 MG TABLET PO (13:13)
[2023-03-25] MEDS: TAMSULOSIN HCL 0.4 MG CAPSULE PO (13:13)
--- NOTE | 2023-03-25 15:29 | PM.DS ---
DS: Admitting Diagnosis Discharge Date 03/25/2023 Admitting Diagnosis Arthymia DS: Discharge Diagnosis Discharge Diagnosis (1) Atrial flutter with rapid ventricular response: Code(s): I48.92 - Unspecified atrial flutter Status: Acute Assessment and Plan: Pt admitted for AF with RVR Treated with diltiazem drip Pt to have electrical cardioversion tomorrow Under cardiology (2) Acquired hypogammaglobulinemia: Code(s): D80.1 - Nonfamilial hypogammaglobulinemia Status: Acute Assessment and Plan: Pt is on remission (3) B-cell lymphoma: Onset Date: ~09/2021 Code(s): C85.10 - Unspecified B-cell lymphoma, unspecified site Status: Acute Assessment and Plan: Pt is on remission DS: Summary Hospital Course Hospital Course: 77-YEAR-OLD MALE WITH PAST MEDICAL HISTORY SIGNIFICANT FOR B-CELL LYMPHOMA, UNDERGOING CHEMOTHERAPY, PATIENT COMES TO THE EMERGENCY ROOM AFTER HIS APPLE WATCH INFORMED HIM ABOUT HAVING ABNORMAL HEART RATE WAS ADVISED TO COME TO THE EMERGENCY ROOM BY? HIS ONCOLOGIST. PATIENT? REPORT THAT HE HAS BEEN IN HIS USUAL STATE OF HEALTH DENIES ANY CHEST PAIN, SHORTNESS OF BREATH, PALPITATIONS, LIGHTHEADEDNESS, DIZZINESS, SYNCOPE OR NEAR-SYNCOPE, NO LEG SWELLING, NO PND, NO ORTHOPNEA. PATIENT NOTICED THE IS ON HIS APPLE WATCH THE DAY BEFORE AND THE DAY HE PRESENTED TO THE EMERGENCY ROOM HE MOWED THE LAWN AND FELT HIS USUAL.? UPON ARRIVAL TO EMERGENCY ROOM PATIENT WAS FOUND TO HAVE ATRIAL FIBRILLATION WITH RAPID VENTRICULAR RESPONSE AND WAS STARTED ON DILTIAZEM DRIP.? Pt is having af with rvr Pt is on diltiazem drip Pt seen by cardiology Pt will have electrical cardioversion under cardiology? Pt had sucessful cardioversion ok to DC [facility] cardiology folow up. Time Spent with Patient Time attestation: Total time spent providing and/or coordinating discharge services:30 minutes on day of Dc Exam Narrative: PATIENT IS LAYING IN A STRETCHER Const: General: comfortable, no acute distress, well developed, alert, awake, average body habitus and other ( WELL-APPEARING) Nutritional Appearance: average body habitus Orientation/consciousness: patient oriented x3 Resp: Effort & Inspection: normal respiratory effort and able to speak in complete sentences Auscultation: clear to auscultation bilaterally Cardio: Jugular venous distension: no JVD Rate: regular rate Rhythm: regular rhythm Heart sounds: S1 normal heart sound present and S2 normal heart sound present Neuro: General: patient oriented x3, CN's II-XI intact bilaterally and Unable to assess gait Cranial nerves: Yes CN's II-XII intact bilaterally and Yes Equal, round and reactive pupils present Cognition (Neuro): normal cognition Speech: normal speech Gait exam (Neuro): Unable to assess gait Motor exam (neuro): 5/5 motor strength present throughout Sensory Exam: No Sensory deficit (Neuro) Extrem: General: normal to inspection, full ROM, no joint enlargement and no pedal edema Discharge Plan Discharge Attending physician on discharge: Julia Zelaya Consulting providers: Marquis Wilkinson; Eduarda Singh V.; Ernesto Cardozo; Yohannes Wilde; Nick Garcia; Don Soria Discharging Clinician: Julia Zelaya Anticipated Discharge Date/Time: 03/25/23 15:24 Patient Disposition: Home, Self-Care Activity: as tolerated Diet: as tolerated Patient Instructions: Cardioversion (DC) Stand Alone Forms: General Discharge Information Follow-up/Referrals: Irene Garcia MD [Primary Care Provider] - Discharge Medications: New simvastatin 10 mg Tablet 10 mg PO HS Qty: 30 0RF metoprolol succinate [Toprol XL] 25 mg Tablet Extended Release 24 Hr 25 mg PO QAM Qty: 30 0RF Xarelto 20 mg Tablet 20 mg PO DAILY@1700 Qty: 30 0RF Continued mecobalamin (vitamin B12) [B12 Active] 1,000 mcg Tablet,Chewable 1,000 mcg PO DAILY finasteride 5 mg tablet 5
== END 2023-03-25 15:52 | disposition home or self-care (01) | DRG 309 ==
LOC: ANHED 17:49 → ANHIMU 19:24
PROVIDERS: Internal Medicine Cardiovascular Disease; Admitting Provider General Practice; Emergency Provider Preventive Medicine Aerospace Medicine; PCP Family Medicine; Visit Provider Family Medicine
PROC: 5A2204Z Restoration of Cardiac Rhythm, Single (ICD-10-PCS; CPT 93312; principal; 2023-03-25 11:00)
PROC: 5A2204Z Restoration of Cardiac Rhythm, Single (ICD-10-PCS; 2023-03-25 11:00)
DX: I48.92 Unspecified atrial flutter (principal); C85.10 Unspecified B-cell lymphoma, unspecified site; D80.1 Nonfamilial hypogammaglobulinemia; N40.0 Benign prostatic hyperplasia without lower urinary tract symptoms; E78.5 Hyperlipidemia, unspecified; G62.9 Polyneuropathy, unspecified; Z90.49 Acquired absence of other specified parts of digestive tract; Z87.891 Personal history of nicotine dependence; Z87.19 Personal history of other diseases of the digestive system; R73.03 Prediabetes
CPT/HCPCS: 36415; 71046; 71275; 80048; 80053; 83690; 83735; 84436; 84443; 84484; 85025; 85610; 85730; 92960; 93005; 93306; 93312; 93320; 93325; 96361; 96365; 96366; 96372; 96376; 99285; A9270; G0378; J1642; J1650; J2250; J3010; J7030; J7040; Q9967